=== PATIENT | male | born 1950 | race Caucasian/White ===

== ENCOUNTER → 2018-05-28 | Day surgery (SDC) | payer BC, MEDICARE ==
[2018-05-22 15:55] VITALS: BMI 33.5
[~2018-05-28] MED LIST: LACTATED RINGERS 1,000 ML IV SCH; LIDOCAINE 1% 20 ML VIAL (10MG/ML) FOR IV START INTRADERMA PRN; PROPOFOL 10 MG/ML 20 ML VIAL IV ONE
[2018-05-28 09:01] VITALS: RESP 16; TEMP 97.5
--- NOTE | 2018-05-28 09:10 | P.GSHP ---
History of Present Illness H&P Date: 05/28/18 Chief Complaint: History of colon polyps This a 68-year-old male who presents today for colonoscopy. Patient's previous history of colon polyps. Past Medical History Past Medical History: Eye Disorder, Hyperlipidemia, Prostate Disorder History of Any Multi-Drug Resistant Organisms: None Reported Additional Past Surgical History / Comment(s): RECONSTRUCTION RT CHEEK BONE. COLONOSCOPY. LT CATARACT REMOVAL Past Anesthesia/Blood Transfusion Reactions: No Reported Reaction Smoking Status: Never smoker - Past Family History Brother(s) Family Medical History: Cancer Medications and Allergies Home Medications Medication Instructions Recorded Confirmed Type Brimonidine Tartrate [Alphagan P 1 drops BOTH EYES BID 05/22/18 05/28/18 History 0.15% Ophth Soln] Finasteride [Proscar] 5 mg PO DAILY 05/22/18 05/28/18 History Simvastatin [Zocor] 20 mg PO DAILY 05/22/18 05/28/18 History Terazosin HCl 10 mg PO DAILY 05/22/18 05/28/18 History Timolol [Betimol 0.5% Ophth Soln] 1 drop BOTH EYES BID 05/22/18 05/28/18 History Allergies Allergy/AdvReac Type Severity Reaction Status Date / Time No Known Allergies Allergy Verified 05/28/18 08:48 Surgical - Exam Vital Signs Temp Pulse Resp BP Pulse Ox 97.5 F L 89 16 150/72 94 L 05/28/18 08:55 05/28/18 08:55 05/28/18 08:55 05/28/18 08:55 05/28/18 08:55 - General well developed, no distress - Eyes PERRL - ENT normal pinna - Neck no masses - Respiratory normal expansion - Cardiovascular Rhythm: regular - Abdomen Abdomen: soft, non tender Assessment and Plan Assessment: History of colon polyps. We'll perform colonoscopy.
--- NOTE | 2018-05-28 09:25 | P.OP ---
Date of Procedure: 05/28/18 Preoperative Diagnosis: History of colon polyps Postoperative Diagnosis: Normal colonoscopy Procedure(s) Performed: Colonoscopy Anesthesia: MAC Surgeon: Alex Owens Pathology: none sent Condition: stable Disposition: PACU Description of Procedure: PROCEDURE: The patient was placed on the endoscopy table in the lateral position. Digital rectal examination was performed which revealed no abnormalities. The prostate was symmetrical without nodules. Flexible colonoscope was then placed in the patient's anus and passed throughout the entire colon. The ileocecal valve was visualized. The cecum, ascending, transverse, descending and sigmoid colon were normal. The rectum was normal as well. There were no masses, polyps or diverticula noted in the entire colon. SUMMARY OF FINDINGS: Normal colonoscopy.
[2018-05-28 09:37] VITALS: PULSE 81
[2018-05-28 10:06] VITALS: BP 153/83
== END | disposition home or self-care (01) ==
LOC: ORWHC2ENDO 08:24
PROVIDERS: ATTEND Surgery
DX: Z12.11 Encounter for screening for malignant neoplasm of colon (principal); E78.5 Hyperlipidemia, unspecified; H40.9 Unspecified glaucoma; I10 Essential (primary) hypertension; Z86.010 Personal history of colon polyps; Z79.899 Other long term (current) drug therapy
CPT/HCPCS: J2704; G0105; 45378

== ENCOUNTER 2018-09-15 09:20 | Emergency (ER) | payer MEDICARE ==
[2018-09-15 09:26] VITALS: PULSE 83; RESP 18; TEMP 97.6
--- NOTE | 2018-09-15 10:31 | ED ---
Fall HPI - General Chief Complaint: Fall Stated Complaint: fall Time Seen by Provider: 09/15/18 09:41 Source: patient Mode of arrival: ambulatory - History of Present Illness Initial Comments: Patient is 68-year-old male presenting to the emergency department with chief complaint of pain in the left wrist, ribs and left hip. Patient states he was walking down to the basement to 3 days ago carrying a bowling ball when he tripped over the last step. Patient reports falling to the left side. Patient denies loss of consciousness at time of incident. he was able to get up on his own and get back upstairs. Patient reports taking ibuprofen for last 2 days with minimal improvement. Patient reports moderate pain with palpation in the anterior axillary line that is relieved with rest. Patient reports decreased wrist range of motion due to pain. Patient reports very mild pain in the left hip. Patient reports faint neck soreness. Patient denies any blurry vision, dizziness or headaches. Patient denies any chest pain or chest tightness. Patient denies previous syncopal episodes. - Related Data Home Medications Medication Instructions Recorded Confirmed Brimonidine Tartrate [Alphagan P 1 drops BOTH EYES BID 05/22/18 09/15/18 0.15% Ophth Soln] Finasteride [Proscar] 5 mg PO DAILY 05/22/18 09/15/18 Simvastatin [Zocor] 20 mg PO DAILY 05/22/18 09/15/18 Terazosin HCl 10 mg PO DAILY 05/22/18 09/15/18 Timolol [Betimol 0.5% Ophth Soln] 1 drop BOTH EYES BID 05/22/18 09/15/18 Ergocalciferol [Vitamin D2] 50,000 unit PO MO 09/15/18 09/15/18 Ibuprofen [Motrin Ib] 400 mg PO Q6H PRN 09/15/18 09/15/18 Allergies Allergy/AdvReac Type Severity Reaction Status Date / Time No Known Allergies Allergy Verified 09/15/18 09:51 Review of Systems ROS Statement: Those systems with pertinent positive or pertinent negative responses have been documented in the HPI. ROS Other: All systems not noted in ROS Statement are negative. Past Medical History Past Medical History: Eye Disorder, Hyperlipidemia, Prostate Disorder History of Any Multi-Drug Resistant Organisms: None Reported Additional Past Surgical History / Comment(s): RECONSTRUCTION RT CHEEK BONE. COLONOSCOPY. LT CATARACT REMOVAL Past Anesthesia/Blood Transfusion Reactions: No Reported Reaction Past Psychological History: No Psychological Hx Reported Smoking Status: Never smoker Past Alcohol Use History: Daily Past Drug Use History: None Reported - Past Family History Brother(s) Family Medical History: Cancer General Exam Limitations: no limitations General appearance: alert, in no apparent distress Head exam: Present: atraumatic, normocephalic Eye exam: Present: normal appearance, PERRL, EOMI. Absent: scleral icterus, conjunctival injection Pupils: Present: normal accommodation Neck exam: Present: normal inspection, tenderness (Very mild over SCM), full ROM (With and without resistance) Respiratory exam: Present: normal lung sounds bilaterally. Absent: wheezes, rales, rhonchi, stridor Cardiovascular Exam: Present: regular rate, normal rhythm, normal heart sounds GI/Abdominal exam: Present: soft, tenderness (Mid anterior axillary line), guarding (Mid anterior axillary line), normal bowel sounds. Absent: distended Left Hand Wrist exam: Present: tenderness (Anatomical snuffbox), swelling (Local swe lling on the posterior aspect of wrist). Absent: full ROM (Limited ROM with flexion and extension), crepitus, erythema Left Hip exam: Present: full ROM, tenderness (Very mild). Absent: swelling, abrasion, laceration Neurological exam: Present: alert, oriented X3 Psychiatric exam: Present: normal affect, normal mood Course Vital Signs 09/15/18 09/15/18 09/15/18 09:23 09:50 10:30 Temperature 97.6 F Pulse Rate 83 Respiratory 18 Rate Blood Pressure 181/89 182/98 164/80 O2 Sat by Pulse 98 94 L 95 Oximetry 09/15/18 09/15/18 10:40 10:50 Temperature Pulse Rate Respiratory Rate Blood Pressure 164/99 164/99 O2 Sat by Pulse Oximetry Procedures - Orthopedic Splinting/Casting Injury #1 Side: left Upper Extremity Injury Location: wrist, hand Upper Extremity Immobilizer: thumb spica Additional Comments: Patient was reevaluated and and neurovascularly intact. Medical Decision Making - Medical Decision Making Patient is a 68-year-old male presenting to the emergency department with the chief complaint of pain in the left wrist, ribs and hip. Chest x-ray ribs was obtained and is suggestive of No acute displaced rib fracture. X-ray left wrist is unremarkable. X-ray of left hip is unremarkable. Patient was given a thumb spica and advised to follow-up in 7-10 days with an fish hatchery specialist. Patient advised to take ibuprofen to control pain and ice the inflamed areas. Patient advised return to the Emergency Department if symptoms worsen or any other concerns. Case discussed with physician Disposition Clinical Impression: Fall Disposition: HOME SELF-CARE Condition: Stable Instructions (If sedation given, give patient instructions): Fall Prevention for Older Adults (ED) Additional Instructions: Please follow up with an fish hatchery specialist in 7-10 days. Take ibuprofen for pain control . Please return to the Emergency Department if symptoms worsen or any other concerns. Is patient prescribed a controlled substance at d/c from ED?: No Referrals: Manuela Chase DO [Primary Care Provider] - 1-2 days Time of Disposition: 11:56
--- NOTE | 2018-09-15 10:55 | XR ---
EXAMINATION TYPE: XR Hip Complete LT DATE OF EXAM: 09/15/2018 COMPARISON: NONE HISTORY: Pain TECHNIQUE: 2 views submitted FINDINGS: There is no evidence of erosive change or acute fracture. Narrowing of the hip joint with hypertrophi c change of the acetabulum. Vascular calcifications noted. IMPRESSION: 1. No evidence of acute fracture or dislocation. 2. 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
--- NOTE | 2018-09-15 10:57 | XR ---
EXAMINATION TYPE: XR wrist complete LT DATE OF EXAM: 09/15/2018 COMPARISON: NONE HISTORY: Pain TECHNIQUE: Four views submitted. FINDINGS: The osseous structures are intact. Arthropathy of the first carpal metacarpal joint. And there is no acute fracture or dislocation. Diffuse osteopenia. IMPRESSION: 1. No definite acute fracture or dislocation if symptoms persist, follow-up study in 7 to 10 days wo uld be suggested
--- NOTE | 2018-09-15 10:59 | XR ---
EXAMINATION TYPE: XR ribs LT w pa chest xray DATE OF EXAM: 09/15/2018 COMPARISON: NONE HISTORY: Pain TECHNIQUE: PA view the chest and 4 views of the left ribs are submitted. FINDINGS: Arthropathy shoulders. No pneumothorax. Lung escoto are clear. Heart size normal. Rib cage intact. IMPRESSION: No acute displaced rib fracture.
[2018-09-15 11:02] VITALS: BP 164/99
== END 2018-09-15 12:20 | disposition home or self-care (01) ==
LOC: EC 09:20
DX: M25.532 Pain in left wrist (principal); R07.81 Pleurodynia; M25.552 Pain in left hip; H57.9 Unspecified disorder of eye and adnexa; E78.5 Hyperlipidemia, unspecified; N42.9 Disorder of prostate, unspecified; Z79.899 Other long term (current) drug therapy; W10.9XXA Fall (on) (from) unspecified stairs and steps, initial encounter; Y93.01 Activity, walking, marching and hiking
CPT/HCPCS: 29125; 73502; 99283

== ENCOUNTER → 2019-03-20 | Outpatient (CLI) | payer MEDICARE ==
--- NOTE | 2019-03-20 16:15 | MR ---
EXAMINATION TYPE: MR lumbar spine wo con DATE OF EXAM: 03/20/2019 COMPARISON: None HISTORY: Lumbago with sciatica, unspecified side TECHNIQUE: Multiplanar, multisequence images of the lumbar spine were acquired. L1-L2: Posterior broad-based disc bulge causes mild anterior mass effect on the thecal sac. No signif icant central stenosis or foraminal encroachment. There is facet arthropathy change causing posterior lateral mass effect on the thecal sac. L2-L3: Broad-based posterior disc bulge causes anterior mass effect on the thecal sac somewhat eccent guanako towards the left there is a disc herniation present encroaching somewhat towards the left neural foramen. There is moderate central canal stenosis. Facet arthropathy causes posterior lateral mass ef fect on the thecal sac. L3-L4: Left posterior paracentral disc herniation causes anterolateral mass effect on the thecal sac. There is moderate central canal stenosis. Facet arthropathy with hypertrophic changes and ligamentum flavum causes posterior lateral mass effect on the thecal sac. Circumferential extension of disc mat erial encroaches somewhat on the foramina. L4-L5: Hypertrophic changes of the facets results in some posterior lateral mass effect on the thecal sac, trefoil appearance of the thecal sac is noted. No significant central stenosis. The facet arthr opathy encroaches somewhat on the neural foramina. There is a posterior broad-based disc bulge causin g minimal anterior mass effect on the thecal sac. L5-S1: Increased signal at the posterior aspect of the disc likely represents an annular tear, there is a small posterior disc protrusion causing minimal anterior mass effect on the thecal sac. Facet ar thropathy with hypertrophy of the ligamentum flavum causes some posterior lateral mass effect on the thecal sac. No significant central stenosis. Circumferential extension of endplate disc complex resul ts in some foraminal encroachment. Lumbar segments are intact. No paraspinal masses are identified. Conus medullaris has a normal appe arance. Lumbar vertebral bodies show preserved height and alignment. There is multilevel spondylosis with endplate discogenic marrow signal change. Loss of disc height signal present at the intervertebr al disc levels L4-5, L2-3, L1-2. IMPRESSION: Disc herniations with spinal stenosis greatest at L3-4, L2-3. Multilevel facet arthropathy and forami nal encroachment.
== END | disposition home or self-care (01) ==
LOC: RADMRIMAIN 05:52
PROVIDERS: ATTEND Family Medicine
DX: M48.061 Spinal stenosis, lumbar region without neurogenic claudication (principal); M48.062 Spinal stenosis, lumbar region with neurogenic claudication; M51.26 Other intervertebral disc displacement, lumbar region; M46.96 Unspecified inflammatory spondylopathy, lumbar region; N40.0 Benign prostatic hyperplasia without lower urinary tract symptoms
CPT/HCPCS: 72148

== ENCOUNTER → 2020-11-24 | Outpatient (CLI) | payer MEDICARE ==
--- NOTE | 2020-11-24 17:42 | MR ---
EXAMINATION TYPE: MR lumbar spine wo con DATE OF EXAM: 11/24/2020 COMPARISON: Lumbar spine MRI 03/20/2019 HISTORY: LBP, RLE radiculopathy. TECHNIQUE: Multiplanar, multisequence images of the lumbar spine were acquired. L1-L2: Posterior extension endplate disc complex causes mild anterior mass effect on the thecal sac. No significant spinal stenosis or foraminal encroachment. L2-L3: Mild spinal stenosis is present, there is facet arthropathy with hypertrophy ligamentum flavum causing posterior lateral mass effect on the thecal sac. Circumferential extension endplate disc com plex encroaches upon the neural foramina. L3-L4: Facet arthropathy with hypertrophy ligamentum flavum results in moderate to severe spinal sten osis, circumferential posterior disc bulge causes anterior mass effect on the thecal sac. Circumferen tial extension endplate disc complex results in bilateral foraminal encroachment. L4-L5: Facet arthropathy with hypertrophy ligamentum flavum results in a trefoil appearance of the th ecal sac. There is some encroachment on the left-sided neural foramen. L5-S1: Facet arthropathy changes are present causing posterior lateral mass effect on the thecal sac, there is some encroachment on the lateral recess greater on the left. Minimal disc bulge effaces the anterior thecal sac similar to prior exam. Circumferential extension endplate disc complexes similar encroaches somewhat on the inferior aspect of the neural foramina. Lumbar segments are intact. No paraspinal masses are identified. Conus medullaris has a normal appe arance. There is no significant interval change. There is multilevel spondylosis, endplate discogenic marrow signal change, loss of disc height signal at intervertebral levels especially L3-4, L4-5, L2- 3 and L1-2. IMPRESSION: Disc disease, facet arthropathy, foraminal encroachment are similar to prior exam.
== END | disposition home or self-care (01) ==
LOC: RADMRIMAIN 08:30
PROVIDERS: ATTEND Orthopaedic Surgery Orthopaedic Surgery of the Spine
DX: M51.17 Intervertebral disc disorders with radiculopathy, lumbosacral region (principal); M47.27 Other spondylosis with radiculopathy, lumbosacral region
CPT/HCPCS: 72148

== ENCOUNTER → 2020-11-30 | Outpatient (CLI) | payer MEDICARE ==
[2020-11-30 09:27] VITALS: BP 152/89; PULSE 87; RESP 16; TEMP 98.2
--- NOTE | 2020-11-30 09:48 | P.PAINCN ---
History of Present Illness - Reason for Consult Consult date: 11/30/20 - History of Present Illness This is a 70 use old male with a chronic history of severe low back pain with radiation to the right buttock and right hip area, pain started more than 2 years ago, denies any initiating event and the intensity of the pain increased over time, she had MRI of the lumbar spine done gently and it showed multilevel lumbar degenerative disc disease and multilevel lumbar spondylosis with lumbar facet arthropathy, and left side foraminal stenosis, denies any motor or sensory deficits but he reported that intensity of the pain interferes with the quality of life, interfere with activities of daily living, she had a urinalysis steroid injection done at different pain clinic and he had no benefit from Past Medical History Past Medical History: Eye Disorder, Hyperlipidemia, Prostate Disorder History of Any Multi-Drug Resistant Organisms: None Reported Past Surgical History: Hernia Repair Additional Past Surgical History / Comment(s): RECONSTRUCTION RT CHEEK BONE. COLONOSCOPY. LT CATARACT REMOVAL. fractured ligament Past Anesthesia/Blood Transfusion Reactions: No Reported Reaction Smoking Status: Never smoker - Past Family History Brother(s) Family Medical History: Cancer Medications and Allergies Home Medications Medication Instructions Recorded Confirmed Type Brimonidine Tartrate [Alphagan P 1 drops BOTH EYES BID 05/22/18 11/30/20 History 0.15% Ophth Soln] Finasteride [Proscar] 5 mg PO DAILY 05/22/18 11/30/20 History Terazosin HCl 10 mg PO DAILY 05/22/18 11/30/20 History Timolol [Betimol 0.5% Ophth Soln] 1 drop BOTH EYES BID 05/22/18 11/30/20 History Ergocalciferol [Vitamin D2] 50,000 unit PO WEEKLY 09/15/18 11/30/20 History Tadalafil [Cialis] 5 mg PO DAILY 11/30/20 11/30/20 History Allergies Allergy/AdvReac Type Severity Reaction Status Date / Time No Known Allergies Allergy Verified 09/15/18 09:51 Physical Exam Vitals: Vital Signs Temp Pulse Resp BP Pulse Ox 11/30/20 09:14 98.2 F 87 16 152/89 96 Intake and Output 11/29/20 11/30/20 11/30/20 22:59 06:59 14:59 Other: Weight 104.647 kg Physical Examinations : -Constitutiona : Cooperative , not in acute distress . -HEENT : nech : supple , no Lymphadenopathy , normal thyroid size . : eyes : no ptosis , no icterus, no photophobia . - neurologic : Cranial nerve II to XII intact , no focal neurological deffecit . -psychatric : alert , oriented X 3 , appropriate affect , intact judgment and insight . -Lymphatic : no Lymphadenopathy . - musculoskeltal : Lumber spine moter stegnth lower extremities ,thigh and legs 5/5 Right side , 5/5 Left side deep tendon reflexes : normal Knee Jerk , normal ankle Jerk lumber facet Loading Test =positive Right , positive Left Range of motion of the lumbar spine Flexion 60 degrees, extension 30 degrees strait leg raising test = positive at negative bilaterally Fabere test= positive Right , and positive LT . mild tenderness over the Sacroiliac joint on the Right , and Left sides Flexion extension and lateral rotation of the right hip associated with severe pain. Results Comments: Of the lumbar spine= multilevel lumbar degenerative disc disease multilevel lumbar spondylosis with lumbar facet arthropathy and left-sided foraminal stenosis Assessment and Plan Plan: Assessment and plan=1-right hip arthralgia. 2-lumbar spondylosis with lumbar facet arthropathy without myelopathy. 3-lumbar degenerative disc disease. Patient had multifactorial causes of his low back pain, clinically most of the pain is coming from the right hip etiology, patient will be referred for evaluation, by orthopedic surgeon regarding his right hip pain. Time with Patient: Greater than 30 PQRS Measure Charge Sheet Measure #130: Documentation of Current Meds in Medical Chart: Patient's medications documented in chart Measure #226: Tobacco Use: Screen & Cessation Intervention: Pt not a tobacco user Measure #111: Pneumonia Vaccination: Pneumococcal vaccine administered or previously received Measure #47: Advance Care Plan: Advance care planning discussed & documented, pt chose/unable to give Measure #412: Opioid Treatment Agreement: No documentation of signed opioid treatment agreement Measure #408: Opioid Therapy Follow-up Evaluation: Patient had NO f/u eval minimum every 3 months during opioid therapy Measure #317: Preventitive Care & Scrn High Bld Press & F/U: Pre-hypertensive or hypertensive BP documented, pt will f/u with PCP Measure #128: Body Mass Index (BMI) Screening & Follow-up: BMI documented ABOVE normal parameters - f/u documented Measure #131: Pain Assessment & Follow-up: Pain positive & plan documented, Follow-up scheduled Measure #431: Unhealthy Alcohol Use Preventative Care & Scrn: Patient not identified as an unhealthy alcohol user PQRS Narrative: Smoking Status Never smoker Blood Pressure 152/89 Pain Intensity [Right Hip] 8 Scale Used Numeric (1 - 10) Hx Alcohol Use (MH) Yes: 6 beers a night Home Medications: Ambulatory Orders Brimonidine Tartrate [Alphagan P 0.15% Ophth Soln] 1 drops BOTH EYES BID 05/22/18 Finasteride [Proscar] 5 mg PO DAILY 05/22/18 Terazosin HCl 10 mg PO DAILY 05/22/18 Timolol [Betimol 0.5% Ophth Soln] 1 drop BOTH EYES BID 05/22/18 Ergocalciferol [Vitamin D2] 50,000 unit PO WEEKLY 09/15/18 Tadalafil [Cialis] 5 mg PO DAILY 11/30/20
== END ==
LOC: PNWHC3 08:47
PROVIDERS: ATTEND Specialist
DX: M47.816 Spondylosis without myelopathy or radiculopathy, lumbar region (principal); M51.36 Other intervertebral disc degeneration, lumbar region; M25.551 Pain in right hip; E78.5 Hyperlipidemia, unspecified
CPT/HCPCS: 99212

== ENCOUNTER → 2021-01-20 | Outpatient (CLI) | payer MEDICARE ==
[~2021-01-20] MED LIST changes: -LACTATED RINGERS 1,000 ML IV SCH; -LIDOCAINE 1% 20 ML VIAL (10MG/ML) FOR IV START INTRADERMA PRN; -PROPOFOL 10 MG/ML 20 ML VIAL IV ONE; +REGADENOSON 0.4 MG/5 ML SYRINGE IV PRN
--- NOTE | 2021-01-20 12:02 | NM ---
EXAMINATION TYPE: NM stress lexiscan cardiolite DATE OF EXAM: 01/20/2021 COMPARISON: None HISTORY: Abnormal EKG TECHNIQUE: After the intravenous administration of 9.7 mCi Tc 99m Sestamibi - Cardiolite resting SPE CT images acquired 50 minutes post injection. The patient received 0.4mg Lexiscan, 25.6 mCi Tc 99m Sestamibi - Stress images obtained [address] injection FINDINGS: Review of stress and rest SPECT images demonstrates decreased uptake along the inferolateral left penny tricle towards the cardiac apex on stress as compared to rest images. Gated analysis shows normal wal l motion with an estimated left ventricular ejection fraction of 46 %. IMPRESSION: Pharmacologically induced left ventricular myocardial ischemia A Yellow level critical message alert has been initiated for Manuela Chase DO via the [employer] Critical Results System on 01/20/2021 11:59 AM. This message alert has been sent to Manuela Chase DO via the preferences provided by the clinician for the receipt of Radiology Critical Findings. Message ID [id number].
--- NOTE | 2021-01-20 13:12 | P.STRESS ---
- Stress Test Note Stress Test Results/Findings: Exam Performed: NM stress lexiscan cardiolite Exam Date: 01/20/21 Reason for Exam: Abnormal EKG Height: 5 ft 11 in Weight: 104.326 kg Protocol: Lexiscan Stage: na Duration of Exercise: na Resting Heart Rate: 63 Resting Blood Pressure: 175/81 Maximum Achieved Heart Rate: 97 Maximum Achieved Blood Pressure: 189/88 85% PMHR: 128 100% PMHR: 150 METS: na Technologist Comment: Stress Test Results/Findings: Baseline [place] EKG shows sinus rhythm with normal ST segments Patient received Lexiscan infusion per protocol Elevated blood pressure readings No ECG abnormalities Occasional PVCs Nuclear portion of the test will be reported separately
== END | disposition home or self-care (01) ==
LOC: RADNMMAIN 07:58
PROVIDERS: ATTEND Family Medicine
DX: I25.9 Chronic ischemic heart disease, unspecified (principal)
CPT/HCPCS: 93017; 78452; A9500; J2785

== ENCOUNTER 2021-01-30 05:57 | Day surgery (SDC) | payer MEDICARE ==
[2021-01-27 09:08] VITALS: BMI 31.6
[~2021-01-30 05:57] MED LIST changes: +ALPRAZolam 0.25 MG TAB PO PRN; +ALPRAZolam 0.5 MG TAB PO PRN; +ASPIRIN 325 MG TAB PO STA; +ATORVASTATIN 80 MG TAB PO STA; +HEPARIN SODIUM,PORCINE 10,000 UNIT in SODIUM CHLORIDE 0.9% 1,000 ML IRRIGATION PRN; +HEPARIN SODIUM,PORCINE 2,500 UNIT in SODIUM CHLORIDE 0.9% 250 ML IRRIGATION PRN; +NITROGLYCERIN SL TABS 0.4 MG TAB SUBLINGUAL PRN; -REGADENOSON 0.4 MG/5 ML SYRINGE IV PRN; +SODIUM CHLORIDE 0.9% 1,000 ML in EMPTY BAG 1 BAG IV ONE
[2021-01-30 06:28] VITALS: RESP 16; TEMP 97.8
[2021-01-30 06:30] LABS: Basophils % (A) 0 %; Eosinophils # (A) 0.2 k/uL (0-0.7); Eosinophils % (A) 3 %; HCT 40.6 % (39.0-53.0); Lymphocytes # (A) 1.9 k/uL (1.0-4.8); Lymphocytes % (A) 28 %; MCH 32.2 pg (25.0-35.0); MCHC 34.4 g/dL (31.0-37.0); MCV 93.6 fL (80.0-100.0); Mean Platelet Volume 7.4; Monocytes # (A) 0.5 k/uL (0-1.0); Monocytes % (A) 7 %; Neutrophils % (A) 60 %; Platelet Count 258 k/uL (150-450); RBC 4.33 m/uL (4.30-5.90); RDW 12.2 % (11.5-15.5); WBC 6.6 k/uL (3.8-10.6)
[2021-01-30 06:44] LABS: African American GFR (CKD) >90 (>60 ml/min/1.73 sqM); Anion Gap 8 mmol/L; Blood Urea Nitrogen 10 mg/dL (9-20); Calcium 9.6 mg/dL (8.4-10.2); Carbon Dioxide 25 mmol/L (22-30); Chloride 108 mmol/L (98-107); Glucose 118 mg/dL (74-99); Non-African American GFR(CKD) >90 (>60 ml/min/1.73 sqM); Potassium 4.2 mmol/L (3.5-5.1); Sodium 141 mmol/L (137-145)
[2021-01-30] MEDS ORDERED: LIDOCAINE 1% INJ 10MG/ML (20 ML MDV) ONE (07:11)
[2021-01-30] MEDS ORDERED: VERAPAMIL 2.5 MG/ML 2 ML AMP ONE (07:12)
[2021-01-30] MEDS ORDERED: fentaNYL (PF) 50 MCG/ML 2 ML AMP ONE (07:25)
[2021-01-30] MEDS ORDERED: MIDAZOLAM 2 MG/2 ML VIAL IV ONE (07:47)
[2021-01-30] MEDS ORDERED: LIDOCAINE 1% INJ 10MG/ML (10 ML MDV) SQ ONE ×2 (07:47→07:48)
[2021-01-30] MEDS ORDERED: fentaNYL (PF) 50 MCG/ML 2 ML AMP IV ONE (07:47)
[2021-01-30] MEDS ORDERED: VERAPAMIL SYRINGE (5 MG/10 ML) INTRAARTER ONE ×2 (07:48→07:49)
[2021-01-30] MEDS ORDERED: HEPARIN SODIUM 1,000 UN/ML (10ML VL) ONE (07:50)
[2021-01-30] MEDS: HEPARIN SODIUM 1,000 UN/ML (10ML VL) IV ONE ×2 (07:52→08:21)
[2021-01-30] MEDS ORDERED: CLOPIDOGREL 75 MG TAB ONE (08:12)
[2021-01-30] MEDS ORDERED: CLOPIDOGREL 75 MG TAB PO ONE ×2 (08:17)
[2021-01-30] MEDS ORDERED: NITROGLYCERIN 1000MCG/10ML SYRINGE INTRACORON ONE ×2 (08:20→08:37)
[2021-01-30] MEDS ORDERED: IOPAMIDOL-370 125ML BTL INJ ONE (08:23)
--- NOTE | 2021-01-30 08:25 | P.CARDCATH ---
Date of Procedure: 01/30/21 Preoperative Diagnosis: HISTORY: This is a 70-year-old gentleman with history of hypertension, diabetes and hypercholesterolemia who was evaluated by stress test as a preop procedure for hip replacement. It was described as abnormal with ischemia in the inferior wall. Patient is advised to have a cardiac catheterization for definitive diagnosis. Patient doesn't have symptoms of angina or CHF CONSENT:I have discussed the risks, benefits and alternative therapies for the above-mentioned procedure and for both sedation/analgesia as well as necessary blood product administration, if indicated, as they pertain to this patient. The patient has indicated understanding and acceptance of the risks and p rocedures discussed. PROCEDURE: Patient was brought to the lab in a fasting state. Patient was given some IV sedation. The right wrist is infiltrated with lidocaine and right radial artery was entered using Seldinger technique. A 6-Occitan catheter was left in place and selective coronary arteriography was performed. Patient tolerated the procedure well. Patient went on to have stent placement of the mid LAD. No immediate complications were noted . Conscious Sedation: Versed 1mg Fentanyl 25 g Duration 18minutes HEMODYNAMICS: Aortic pressure is about 160/90. There is a gradient of about 5 mm across the aortic valve. The left ventricle end-diastolic pressure is about 8-10 SELECTIVE CORONARY ARTERIOGRAPHY: LEFT MAIN: Relatively short and free of any Sigmund focal lesion THE LEFT ANTERIOR DESCENDING CORONARY ARTERY: Moderate caliber vessel with about 80-90% stenosis in the midportion THE LEFT CIRCUMFLEX AND IS CORONARY ARTERY: Fair caliber vessel giving small intermediate branch and mid has is mild diffuse disease. No critical lesions THE RIGHT CORONARY ARTERY: Dominant vessel with mild diffuse disease. Use ice to PDA and PLV LEFT VENTRICULOGRAPHY: Not performed FINAL IMPRESSION: Critical lesion involving the mid LAD. Mild disease involving the intermediate and also right coronary artery PLAN: Stent placement of the mid LAD being done by Dr. Willett PROGNOSIS: Fair
[2021-01-30] MEDS ORDERED: IOPAMIDOL-370 100ML BTL INJ ONE (08:42)
--- NOTE | 2021-01-30 09:15 | P.PRCINT ---
Percutaneous Coronary Int. - Percutaneous Coronary Intervention Percutaneous Coronary Intervention: PROCEDURES PERFORMED: Left coronary angiography. PCI mid LAD with a 2.5 x 12mm Xience JOSELITO INDICATION: Abnormal stress test, preoperative clearance HISTORY: Patient is a pleasant 70-year-old male with history of hypertension, diabetes mellitus, hyperlipidemia and osteoarthritis. He had diagnostic heart catheterization performed by Dr Vallejo secondary to abnormal stress test with apical ischemia. Heart catheterization showed obstructive 90% LAD stenosis as well as diffuse mild to moderate disease. Therefore I was asked to perform PCI. CONSENT:I have discussed the risks, benefits and alternative therapies for the above-mentioned procedure and for both sedation/analgesia as well as necessary blood product administration, if indicated, as they pertain to this patient. The patient has indicated understanding and acceptance of the risks and procedures discussed. PROCEDURE: After the risks, benefits and alternatives of the above mentioned procedure explained in detail with the patient, informed consent was obtained. Patient has been taken to the catheterization lab and prepped and draped in usual fashion. A 6-Occitan sheath has previously been placed in the right radial artery. A 6-Occitan CLS 3.5 guide catheter was used to engage the left main. Heparin was given for ACT greater than 250. A 0.014 BMW wire was advanced into the distal LAD. Predilation was performed with a 2.25 x 12 mm balloon. Next a 2.5 x 12 mm Xience JOSELITO was placed. For intervention there was 90% stenosis with THU 3 flow and post intervention there was less than 10% stenosis with THU 3 flow and no dissection. The right radial sheath was removed and a TR band was placed with hemostasis achieved. The patient tolerated the procedure well. Patient was transported back to the post catheterization holding area in stable condition. Conscious Sedation: Patient was monitored under the direct supervision of vision of myself for conscious sedation using Versed and fentanyl for a total duration of 32 minutes SELECTIVE CORONARY ARTERIOGRAPHY: LEFT MAIN: The left main is a large caliber vessel which trifurcates into the LAD. ramus and circumflex. There is no significant stenosis. LEFT ANTERIOR DESCENDING CORONARY ARTERY: LAD is a large caliber vessel which wraps around to the apex. There is diffuse 20-40% proximal to mid LAD stenosis with a more focal mid LAD 90% stenosis. RAMUS: Ramus is a moderate caliber vessel with diffuse 30-40% stenosis. LEFT CIRCUMFLEX CORONARY ARTERY: Left circumflex is a moderate caliber vessel diffuse 30-40% stenosis. RIGHT CORONARY ARTERY: Not imaged FINAL IMPRESSION: 1. CAD as described above status post PCI mid LAD with a 2.5 x 12mm Xience JOSELITO PLAN: 1. Aggressive risk factor modification per most recent ACC/AHA guidelines. 2. Continue dual antiplatelets for 12 months
[2021-01-30] MEDS ORDERED: ATROPINE SULFATE 0.1 MG/ML 10ML SYRINGE IV PRN (09:16)
[2021-01-30] MEDS ORDERED: NITROGLYCERIN SL TABS 0.4 MG TAB SUBLINGUAL PRN (09:16)
[2021-01-30] MEDS ORDERED: MAG HYDROX/AL HYDROX/SIMETH 30 ML CUP PO PRN (09:16)
[2021-01-30] MEDS ORDERED: RX INFO: IV CONTRAST WAS GIVEN 1 EACH MISC MISCELLANE PRN (09:16)
[2021-01-30] MEDS ORDERED: ZOLPIDEM 5 MG TAB PO PRN (09:16)
[2021-01-30] MEDS ORDERED: SODIUM CHLORIDE 0.9% 1,000 ML IV SCH (09:30)
[2021-01-30] MEDS ORDERED: METOPROLOL SUCCINATE (ER) 25 MG TAB.ER.24H PO STA (12:29)
[2021-01-30 16:52] VITALS: BP 153/70; PULSE 74
[2021-01-31] MEDS ORDERED: ASPIRIN 81 MG PO SCH (09:00)
[2021-01-31] MEDS ORDERED: CLOPIDOGREL 75 MG TAB PO SCH (09:00)
== END 2021-01-30 13:44 | disposition home or self-care (01) ==
LOC: CATHCVL 05:57
PROVIDERS: ATTEND Internal Medicine Cardiovascular Disease
DX: I25.10 Atherosclerotic heart disease of native coronary artery without angina pectoris (principal); I10 Essential (primary) hypertension
CPT/HCPCS: 93458; 80048; 85025; 87635; C9600; C1769; C1887 ×2; C1894; C1725; C1874; J2250; J3010; J1644; J2001; Q9967 ×2

== ENCOUNTER → 2021-07-28 | Outpatient (CLI) | payer MEDICARE ==
[2021-07-28 14:47] LABS: Basophils # (A) 0.04 X 10*3/uL (0.00-0.10); Basophils % (A) 0.7 %; Eosinophils # (A) 0.21 X 10*3/uL (0.04-0.35); Eosinophils % (A) 3.5 %; HGB 12.3 g/dL (13.0-17.0); Immature Grans, Automated 0.5 %; Lymphocytes % (A) 20.1 %; MCH 30.4 pg (27.0-32.0); MCHC 32.4 g/dL (32.0-37.0); MCV 94.1 fL (80.0-97.0); Mean Platelet Volume 10.1 fL (9.5-12.2); Monocytes # (A) 0.56 X 10*3/uL (0.20-1.00); Monocytes % (A) 9.4 %; NRBC Per 100 WBC 0 /100 WBCS (0.0-0.0); Neutrophils # (A) 3.93 X 10*3/uL (1.80-7.70); Neutrophils % (A) 65.8 %; Platelet Count 243 X 10*3/uL (140-440); RBC 4.04 X 10*6/uL (4.40-5.60); RDW 11.9 % (11.5-14.5); WBC 5.97 X 10*3/uL (4.50-10.00)
[2021-07-28 14:54] LABS: Anion Gap 13.3 mmol/L (10.00-18.00); Carbon Dioxide 22.7 mmol/L (20.0-27.5); Potassium 4.5 mmol/L (3.5-5.5)
[2021-07-28 15:06] LABS: INR 0.95 (0.90-1.11); Prothrombin Time 10.8 sec (9.9-11.9)
== END | disposition home or self-care (01) ==
LOC: LABPAT 09:05
PROVIDERS: ATTEND Orthopaedic Surgery
DX: Z01.812 Encounter for preprocedural laboratory examination (principal); Z22.322 Carrier or suspected carrier of Methicillin resistant Staphylococcus aureus; M16.11 Unilateral primary osteoarthritis, right hip
CPT/HCPCS: 80051; 85025; 85610; 87070

== ENCOUNTER 2021-08-07 11:03 | Day surgery (SDC) | payer MEDICARE ==
--- NOTE | 2021-08-06 19:25 | HP ---
HISTORY AND PHYSICAL REASON FOR ADMISSION: Surgery scheduled for 08/07/2021 HISTORY OF PRESENT ILLNESS: Curtis Wick is a 71-year-old gentleman seen with symptomatic right hip osteoarthritis. We discussed options for treatment. He elected to proceed with direct anterior right total hip arthroplasty. Consent was obtained. Medical clearance was provided by Dr. Manuela Chase, cardiac clearance from Dr. Lambert. PAST MEDICAL HISTORY: Hypertension, hyperlipidemia, cardiovascular disease. PAST SURGICAL HISTORY: Noncontributory. MEDICATIONS: Terazosin, atorvastatin, Plavix, lisinopril, metoprolol. ALLERGIES: None reported. SOCIAL HISTORY: He denies current tobacco use. PHYSICAL EXAMINATION: Evaluation of the right hip, he has diffuse tenderness about the hip girdle. Very limited range of motion with severe pain. Positive hip impingement sign. Straight-leg raise is negative. His distal neurovascular exam is intact. RADIOGRAPHS: Right hip radiographs reveal severe osteoarthritic changes. IMPRESSION: 1. Right hip osteoarthritis. 2. Cardiovascular disease. 3. Hypertension. 4. Hyperlipidemia. PLAN: Direct anterior right total hip arthroplasty. Surgery 08/07/2021. MMODL / IJN: [id number] /
[~2021-08-07 11:03] MED LIST changes: +ACETAMINOPHEN TAB 500 MG TAB PO PRN; -ALPRAZolam 0.25 MG TAB PO PRN; -ALPRAZolam 0.5 MG TAB PO PRN; -ASPIRIN 325 MG TAB PO STA; -ATORVASTATIN 80 MG TAB PO STA; +DEXAMETHASONE SOD PHOSPHATE 4 MG/ML 1 ML VIAL IV ONE; -HEPARIN SODIUM,PORCINE 10,000 UNIT in SODIUM CHLORIDE 0.9% 1,000 ML IRRIGATION PRN; -HEPARIN SODIUM,PORCINE 2,500 UNIT in SODIUM CHLORIDE 0.9% 250 ML IRRIGATION PRN; +LIDOCAINE 1% (10MG/ML) FOR IV START INTRADERMA PRN; +MELOXICAM 7.5 MG TAB PO PRN; +MIDAZOLAM 2 MG/2 ML VIAL IV PRN; -NITROGLYCERIN SL TABS 0.4 MG TAB SUBLINGUAL PRN; +ONDANSETRON 4 MG/2 ML VIAL IVP ONE; -SODIUM CHLORIDE 0.9% 1,000 ML in EMPTY BAG 1 BAG IV ONE; +TRANEXAMIC ACID IN NACL,ISO-OS 1,000 MG in SALINE 1 100ML.BAG IVPB PRN
[2021-08-07] MEDS ORDERED: LACTATED RINGERS 1,000 ML IV ONE ×2 (11:41→16:24)
[2021-08-07] MEDS ORDERED: PROPOFOL 10 MG/ML 20 ML VIAL IV ONE (12:18)
[2021-08-07] MEDS ORDERED: PHENYLEPHRINE-0.9% NACL SYG 1,000 MCG/10 ML SYRINGE ONE (12:18)
[2021-08-07] MEDS ORDERED: MIDAZOLAM 2 MG/2 ML VIAL ONE (12:18)
[2021-08-07] MEDS ORDERED: fentaNYL (PF) 50 MCG/ML 2 ML AMP ONE (12:18)
[2021-08-07] MEDS ORDERED: LIDOCAINE 1% INJ 10MG/ML (20 ML MDV) ONE (12:18)
[2021-08-07] MEDS ORDERED: NEOSTIGMINE 1 MG/ML 10 ML VIAL ONE (12:18)
[2021-08-07] MEDS ORDERED: GLYCOPYRROLATE 0.2 MG/ML 2 ML VIAL ONE (12:18)
[2021-08-07] MEDS ORDERED: SUCCINYLCHOLINE CHLORIDE 100 MG/5 ML SYR IV ONE (12:18)
[2021-08-07] MEDS ORDERED: ROCURONIUM 10 MG/ML (5 ML VIAL) IV ONE (12:18)
[2021-08-07] MEDS ORDERED: TRANEXAMIC ACID IN NACL,ISO-OS 1,000 MG/100 ML BAG ONE (12:18)
[2021-08-07] MEDS ORDERED: BUPIVACAINE (PF) 0.5% 30 ML VIAL SQ ONE (12:23)
[2021-08-07] MEDS ORDERED: ceFAZolin 1,000 MG in SODIUM CHLORIDE 0.9% 1,000 ML IRRIGATION ONE (12:50)
--- NOTE | 2021-08-07 14:07 | P.OP ---
Date of Procedure: 08/07/21 Preoperative Diagnosis: Right hip osteoarthritis Postoperative Diagnosis: Right hip osteoarthritis Procedure(s) Performed: Direct anterior right total hip arthroplasty Implants: 1. Depuy [place]ail size 15 high offset with collar press-fit femoral stem 2. Depuy [place] 60 mm multi hole press-fit acetabular shell 3. Depuy [place] +4 neutral polyethylene acetabular liner 36 mm ID 60 mm OD 4. Biolox Delta ceramic femoral head +1.5 36 mm Anesthesia: VICTORIAA, local Surgeon: Norman Light Outside Barrel Lathe Operator #1: Stevan Sykes Estimated Blood Loss (ml): 80 Pathology: other (Femoral head) Condition: stable Disposition: PACU Indications for Procedure: 71-year-old patient seen with symptomatic right hip osteoarthritis. After treatment options were discussed, he elected to proceed with direct anterior right total hip arthroplasty Operative Findings: See description of procedure Description of Procedure: The patient was taken to the operative suite. Patient underwent a general anesthetic by the department of anesthesia. Patient was then transferred to the [place] table. Patient was given preoperative IV antibiotics and TXA. Both lower extremities were placed in standard leg spars. The hip was then prepped and draped in the normal sterile orthopedic fashion. A standard anterior incision was made beginning 3 cm lateral and 1 cm distal to the ASIS extending 10 cm. D issection was then carried down through the subcutaneous soft tissues down to the fascia overlying the tensor fascia miranda. An incision was now made through the fascia. Careful dissection was taken down exposing the tensor fascia miranda muscle. A Cobra retractor was now placed along the medial femoral neck and a second one along the lateral femoral neck. The venous circumflex vessels were now identified, cauterized and clipped. We identified the anterior hip capsule. An incision was made through the hip capsule along the lateral border. I performed a partial anterior capsulectomy. Retractors were now placed around the femoral neck itself. A femoral neck cut was now made with a sagittal saw. It was completed with an osteotome at the lateral neck area. The femoral head was now removed without difficulty. The extremity was now rotated to 60 of external rotation. It was locked in position. Residual labrum was now debrided out. Serial reaming was performed of the acetabulum while Shemar PEREZ assisted holding an anterior retractor for exposure. Once we reached the appropriate size and a trial was position and fit nicely. The appropriate size was now chosen opened and made available. It was introduced into the acetabulum without difficulty. The C-arm/fluoroscopy was now brought into the operative field. We made sure we had a true AP pelvic view. We now under direct C- arm/fluoroscopy introduced into the acetabular component with appropriate version and inclination. I held the cup in appropriate position well Shemar PEREZ used a mallet to seat the acetabular component. I noted the component now to be well seated and stable. Acetabular cup introduce her was removed. The C-arm was pulled back. An appropriate liner was introduced and clicked into position. It was felt to be stable. At this point retractors were removed. The extremity was now placed into 140 external rotation with no traction. The leg was now dropped to the ground and adducted. Appropriate retractors were now positioned along the proximal femur. We also placed our femoral look into position. Additional capsular releasing was performed to gain access to the proximal femur. We now used a box osteotome. A canal finder was now utilized. Serial broaching was now performed with the assistance of Shemar PEREZ tapping the broaches down with a mallet while held the broach in appropriate rotation and position. This was done until we reached the appropriate size with good overall rotational stability. Appropriate calcar planing was performed. A trial head/neck was placed into position. The hip was now reduced. The C- arm/fluoroscopy was brought back into the operative field. I obtained AP pelvis demonstrating adequate leg length alignment. The trial components appeared appropriately positioned and sized. The C-arm/fluoroscopy was pulled back. Retractors were repositioned and the hip was dislocated. The leg was again taken down to the ground and adducted. Appropriate retractors were repositioned as well as the femoral hook. All trial components were removed. The femoral implant was opened along with the femoral head. The femoral implant was intro duced on the appropriate handle into our pre-broached area. I held the component position well Shemar PEREZ used a mallet to seat the femoral component. The femoral component was now noted to be well seated and stable.. The femoral head was introduced with good positioning and fixation noted. Retractors were now removed. The hip was now reduced. There appeared be good positioning of the hip confirmed on intraoperative fluoroscopy. Spot films were obtained to document this. A second gram of TXA was given. The deep and superficial soft tissues were infiltrated with local analgesic. Bipolar cautery had been utilized intermittently through the procedure for hemostasis. The wound was irrigated copiously with pulse lavage mechanical irrigation. The fascia was repaired with Vicryl suture. The subcutaneous soft tissues were repaired in layers with Vicryl suture. The skin was approximated with pernio/Dermabond. Sterile dressings were applied. Patient was then awakened, transferred to a bed and taken to recovery in stable condition. Shemar PEREZ assisted with the complex procedure.
[2021-08-07] MEDS ORDERED: HYDROmorphone 1 MG/ML 1 ML SYRINGE IVP PRN ×3 (14:08)
[2021-08-07] MEDS ORDERED: NALOXONE 0.4 MG/ML 1 ML VIAL IV PRN (14:08)
[2021-08-07] MEDS ORDERED: HYDROcodone/APAP 7.5-325MG 1 EACH TAB PO PRN (14:08)
[2021-08-07] MEDS ORDERED: ONDANSETRON 4 MG/2 ML VIAL IVP PRN (14:08)
--- NOTE | 2021-08-07 14:26 | XR ---
EXAMINATION TYPE: XR Hip Limited RT DATE OF EXAM: 08/07/2021 COMPARISON: NONE HISTORY: Postop TECHNIQUE: One view submitted. FINDINGS: There is postsurgical change in near anatomic alignment. There is soft tissue edema and emphysema. IMPRESSION: 1. Postoperative change. Appears in near-anatomic alignment.
[2021-08-07] MEDS: HYDROmorphone 0.5 MG/0.5 ML SYRINGE IVP PRN ×2 (14:55→15:10)
--- NOTE | 2021-08-07 15:13 | FL ---
EXAMINATION TYPE: FL guidance operating room DATE OF EXAM: 08/07/2021 HISTORY: Fluoroscopy time 18 seconds of fluoroscopy provided. IMPRESSION: 1. Fluoroscopy time.
[2021-08-07] MEDS: LACTATED RINGERS 1,000 ML IV SCH ×2 (17:02→17:04)
[2021-08-07] MEDS: HYDROcodone/APAP 5-325MG 1 EACH TAB PO PRN (20:25)
[2021-08-07] MEDS ORDERED: SENNOSIDES-DOCUSATE SODIUM 1 EACH TAB PO SCH (21:00)
[2021-08-08] MEDS: LACTATED RINGERS 1,000 ML IV SCH ×3 (03:32→12:08)
[2021-08-08] MEDS: HYDROcodone/APAP 5-325MG 1 EACH TAB PO PRN (06:02)
[2021-08-08 07:25] VITALS: BP 144/73; PULSE 91; RESP 20; TEMP 98.2
[2021-08-08] MEDS ORDERED: DOXAZOSIN 4 MG TAB PO SCH (09:00)
[2021-08-08] MEDS ORDERED: FAMOTIDINE 20 MG TAB PO SCH (09:00)
[2021-08-08] MEDS ORDERED: NON FORMULARY DRUG (Tadalafil [Cialis] 5 MG Tablet) PO SCH (09:00)
[2021-08-08] MEDS ORDERED: ENOXAPARIN 40 MG/0.4 ML SYRINGE SQ SCH (09:00)
[2021-08-08] MEDS ORDERED: ATORVASTATIN 40 MG TAB PO SCH (09:00)
[2021-08-08] MEDS ORDERED: FINASTERIDE 5 MG TAB PO SCH (09:00)
[2021-08-08] MEDS ORDERED: METOPROLOL SUCCINATE (ER) 25 MG TAB.ER.24H PO SCH (09:00)
[2021-08-08 09:29] LABS: Basophils # (A) 0.02 X 10*3/uL (0.00-0.10); Basophils % (A) 0.2 %; Eosinophils # (A) 0.01 X 10*3/uL (0.04-0.35); Eosinophils % (A) 0.1 %; HCT 31.7 % (39.6-50.0); HGB 10.3 g/dL (13.0-17.0); Immature Grans, Automated 0.6 %; Lymphocytes % (A) 9.6 %; MCH 30.5 pg (27.0-32.0); MCHC 32.5 g/dL (32.0-37.0); MCV 93.8 fL (80.0-97.0); Monocytes # (A) 1.09 X 10*3/uL (0.20-1.00); Monocytes % (A) 10.5 %; NRBC Per 100 WBC 0 /100 WBCS (0.0-0.0); Neutrophils # (A) 8.24 X 10*3/uL (1.80-7.70); Platelet Count 223 X 10*3/uL (140-440); RBC 3.38 X 10*6/uL (4.40-5.60); RDW 11.9 % (11.5-14.5); WBC 10.42 X 10*3/uL (4.50-10.00)
[2021-08-08] MEDS ORDERED: TIMOLOL 0.5% OPHTH DROPS 5 ML BTL BOTH EYES SCH (10:15)
[2021-08-08] MEDS ORDERED: PANTOPRAZOLE 40 MG/10 ML VIAL IVP SCH (10:15)
--- NOTE | 2021-08-08 10:29 | P.DS ---
Providers Date of admission: 08/07/2021 Expected date of discharge: 08/08/21 Attending physician: Norman Light Consults: 08/07/21 14:08 Consult Physician Routine Consulting Provider: Jesús Chase Consult Reason/Comments: Medical management Do you want consulting provider notified?: Yes Primary care physician: Manuela Chase [facility] Course: Date of admission: 08/07/2021 Date of discharge: 08/08/2021 Admission diagnosis: Right hip osteoarthritis Discharge diagnosis: Same Attending physician: Dr. Light Surgical procedures: Right total hip arthroplasty Brief history: Patient is a 71-year-old male with a history of progressive primary right hip osteoarthritis. At this point patient has failed conservative treatment measures and has opted to proceed with a elective right total hip arthroplasty. Hospital course: Details of patient's surgery can be found in operative report. Patient tolerated the procedure well and was subsequently transported to orthopedic floor. Patient's orthopeidc and medical care was provided daily. Patient had daily laboratory tests performed for evaluation of overall blood counts. Patient had daily physical therapy to include strengthening range of motion as well as education with walker ambulation. Patient was treated with Lovenox for their postoperative DVT prophylaxis during their inpatient stay. Patient was noted to have a relatively uneventful postoperative course. Patient reported satisfactory pain control with oral pain medications by postoperative day 1. Patient showed satisfactory progress with physical therapy. Patient moved steadily through the program and had no difficulty meeting the goals by postoperative day 1. Given patient's otherwise satisfactory course and having met physical therapy goals, plan is to discharge patient home with health services on postoperative day 1. Discharge condition/disposition: Patient will be discharged home with health services in stable condition. Discharge medications: Instructions are given on resumption of patient's normal daily medications per primary care recommendation, in addition patient will be prescribed [place]; Colace; patient to resume Plavix and aspirin daily for DVT prophylaxis. Discharge instructions: 1. Wound care and infection precautions, keep incision dry and covered while showering, no lotions, creams, moisturizers. No soaking, tubs, pools, hottubs. Do not scrub over the incision. 2. Weight-bear as tolerated with walker / cane until follow-up. 3. Ice and elevate when necessary. Do not exceed 20 minutes per hour with ice pack. 4. Utilize compression sleeve until seen at first follow up appointment. 5. Visiting nursing care. 6. Home physical therapy. 7. Pain meds and anticoagulants per prescription. 8. Pain medication has potential to cause constipation. Increase oral fluid and fiber intake. Contact primary care provider if you have not had a bowel movement within 48 hours after discharge 9. No anti-inflammatory medication until discussed at first post operative visit, this including Motrin, Aleve, Mobic, Diclofenac. 10. Follow up in office at 2 weeks postop with Shemar Sykes PA-C / Gary Rudolph PA-C 11. Follow up with your primary care doctor 7-10 days after discharge. 12. Contact [facility] with any questions, . Keep incision clean, dry, intact. While showering, cover silver foam dressing with Saran wrap. Silver foam dressing may be removed on 08/14/2021 Medications: [place] 7.5 mg/325 mg; Colace; resume Plavix and aspirin daily once home Assessment: Right hip osteoarthritis Procedures: Right total hip arthroplasty Patient Condition at Discharge: Good Plan - Discharge Summary Discharge Rx Participant: No New Discharge Prescriptions: New HYDROcodone/APAP 7.5-325MG [[place] 7.5] 1 each PO Q6HR PRN #30 tab PRN Reason: Pain Docusate [Colace] 100 mg PO DAILY #30 capsule No Action Brimonidine Tartrate [Alphagan P 0.15% Ophth Soln] 1 drops BOTH EYES BID Timolol [Betimol 0.5% Ophth Soln] 1 drop BOTH EYES BID Terazosin HCl 10 mg PO QAM Finasteride [Proscar] 5 mg PO QAM Ergocalciferol [Vitamin D2] 50,000 unit PO MO Tadalafil [Cialis] 5 mg PO DAILY Clopidogrel [Plavix] 75 mg PO DAILY #90 tablet Aspirin 81 mg PO DAILY #90 tab Atorvastatin [Lipitor] 40 mg PO QAM Metoprolol Succinate (ER) [Toprol Xl] 12.5 mg PO QAM Acetaminophen Tab [Tylenol] 500 mg PO Q6H PRN PRN Reason: Pain Discharge Medication List Brimonidine Tartrate [Alphagan P 0.15% Ophth Soln] 1 drops BOTH EYES BID 05/22/18 [History] Finasteride [Proscar] 5 mg PO QAM 05/22/18 [History] Terazosin HCl 10 mg PO QAM 05/22/18 [History] Timolol [Betimol 0.5% Ophth Soln] 1 drop BOTH EYES BID 05/22/18 [History] Ergocalciferol [Vitamin D2] 50,000 unit PO MO 09/15/18 [History] Tadalafil [Cialis] 5 mg PO DAILY 11/30/20 [History] Aspirin 81 mg PO DAILY #90 tab 01/30/21 [Rx] Clopidogrel [Plavix] 75 mg PO DAILY #90 tablet 01/30/21 [Rx] Acetaminophen Tab [Tylenol] 500 mg PO Q6H PRN 08/03/21 [History] Atorvastatin [Lipitor] 40 mg PO QAM 08/03/21 [History] Metoprolol Succinate (ER) [Toprol Xl] 12.5 mg PO QAM 08/03/21 [History] Docusate [Colace] 100 mg PO DAILY #30 capsule 08/08/21 [Rx] HYDROcodone/APAP 7.5-325MG [[place] 7.5] 1 each PO Q6HR PRN #30 tab 08/08/21 [Rx] Follow up Appointment(s)/Referral(s): Jesús Chase MD [STAFF PHYSICIAN] - 1 Week Stevan Sykes PAC [PHYSICIAN BASEBALL PITCHER] - 08/23/21 4:20 pm Patient Instructions/Handouts: Total Hip Replacement (DC) Activity/Diet/Wound Care/Special Instructions: Orthopedic Discharge Instructions: 1. Wound care and infection precautions, keep incision dry and covered while showering, no lotions, creams, moisturizers. No soaking, pools, hot tubs. Do not scrub over incision. 2. Weight-bear as tolerated with walker / cane until follow-up. 3. Ice and elevate when necessary. Do not exceed 20 minutes per hour with ice pack. 4. Utilize compression sleeve until seen at first follow up appointment. 5. Pain meds and anticoagulants per prescription. 6. Pain medication has potential to cause constipation. Increase oral fluid and fiber intake. Contact primary care provider if you have not had a bowel movement within 48 hours after discharge. 7. No anti-inflammatory medication until discussed at first post operative visit, this including Motrin, Aleve, Mobic, Diclofenac. 8. Follow up in office at 2 weeks postop with Shemar Sykes PA-C / Gary Rudolph PA-C 9. Follow up with your primary care doctor 7-10 days after discharge. 10. Contact [facility] with any questions, . keep incision clean, dry, intact. While showering, cover dressing with Saran wrap. Dressing may be removed on Saturday,08/14/2021 Medications: [place] 7.5 mg/325 mg; Colace; resume Plavix and aspirin daily once home Discharge Disposition: HOME WITH HOME HEALTH SERVICES
--- NOTE | 2021-08-08 10:40 | P.PN ---
Subjective Progress Note Date: 08/08/21 Principal diagnosis: Right hip osteoarthritis Patient was seen at bedside this morning resting comfortably sitting up in chair. Patient says he is ready to go home. Patient says his hip does feel a little stiff, but gets better once he begins to walk. Patient says he worked wit h physical therapy this morning and walked out to the bearden and up-and-down a couple steps. Patient says he has not had bowel movement yet, however, patient says he has been passing gas. Patient says he is having some pain over his knee as he points to the medial aspect. Patient says he does have a walker at home. Patient denies chest pain, fever, shortness of breath, nausea, vomiting, change in vision, loss of bowel/bladder control. Objective - Vital Signs Vital signs: Vital Signs Temp 98.2 F 08/08/21 07:24 Pulse 91 08/08/21 07:24 Resp 20 08/08/21 07:24 BP 144/73 08/08/21 07:24 Pulse Ox 94 L 08/08/21 07:24 Intake & Output 08/07/21 08/08/21 08/08/21 18:59 06:59 18:59 Intake Total 1076 Output Total 80 300 Balance 996 -300 Weight 108 kg Intake: IV 1076 Output: Urine 300 Straight 300 Estimated Blood Loss 80 Other: # Voids 0 1 - Exam Right hip: Incision is clean, dry, and intact. The silver foam dressing is in good condition. There is minimal soft tissue swelling and ecchymosis surrounding the medial and lateral aspects of the incision. Calf is soft, no tenderness with palpation. Plantar flexion, dorsiflexion, EHL, FHL are intact. Sensory exam to light touch throughout the extremity is intact, dorsal pedis pulses 2+. - Labs CBC & Chem 7: 08/08/21 03:20 Labs: Abnormal Lab Results - Last 24 Hours (Table) 08/08/21 Range/Units 03:20 WBC 10.42 H (4.50-10.00) X 10*3/uL RBC 3.38 L (4.40-5.60) X 10*6/uL Hgb 10.3 L (13.0-17.0) g/dL Hct 31.7 L (39.6-50.0) % Immature Gran # 0.06 H (0.00-0.04) X 10*3/uL Neutrophils # 8.24 H (1.80-7.70) X 10*3/uL Monocytes # 1.09 H (0.20-1.00) X 10*3/uL Eosinophils # 0.01 L (0.04-0.35) X 10*3/uL Assessment and Plan Assessment: Right hip osteoarthritis Postoperative day #1 status post right total hip arthroplasty Plan: 1. Right hip osteoarthritis - right total hip arthroplasty performed yesterday, 08/07/2021. Patient stable at bedside this morning. Plan discharge home today with health services. 2. Appreciate medical management 3. Pain management - [place] 4. DVT ppx - Lovenox in hospital. Resume Aspirin and Plavix at home 5. GI ppx - Colace 6. Encuroage incentive spirometer use 7. PT/OT - weight bearing as tolerated with walker 8. Discharge planning - discharge home today with health services Time with Patient: Less than 30
== END 2021-08-08 12:26 | disposition home health service (06) ==
LOC: OR 11:03 → 4SSUR 14:03 → OR 08-08 12:26
PROVIDERS: ATTEND Orthopaedic Surgery
DX: M16.11 Unilateral primary osteoarthritis, right hip (principal); I25.10 Atherosclerotic heart disease of native coronary artery without angina pectoris; I10 Essential (primary) hypertension; E78.5 Hyperlipidemia, unspecified; M25.561 Pain in right knee; Z79.899 Other long term (current) drug therapy; Z79.02 Long term (current) use of antithrombotics/antiplatelets
CPT/HCPCS: 97161; 97165; 86900; 86901; 85025; 86850; 88300; 73501; 27130; C1776; S0138; J2250; J1100; J2710; J0690 ×3; J2405; J2001; J1650; J3010; J1170 ×2; J2370; J0330; J2704

== ENCOUNTER 2023-02-21 19:35 | Inpatient (IN) | payer MEDICARE ==
--- NOTE | 2023-02-21 20:56 | XR ---
EXAMINATION: XR chest 2V: 02/21/2023 8:48 PM CLINICAL INDICATION: difficulty breathing TECHNIQUE: Departmental protocol COMPARISON: 09/15/2018 FINDINGS: There is severe silhouetting of the pulmonary vasculature in the lower, mid and upper lung zones by a fine reticular pattern of increased density reaching the periphery as several septal lines and with multifocal bilateral lung areas of coalescing airspace opacity. These findings are consistent with ma rked interstitial/alveolar phase pulmonary edema. The pleural spaces show evidence of small bilateral pleural effusions. The cardiac silhouette appears mildly enlarged. EKG leads noted. The skeletal structures and soft tissues are negative for acute findings. IMPRESSION: Marked pulmonary edema.
[2023-02-21 21:06] LABS: Basophils % (A) 0 %; Eosinophils # (A) 0.2 k/uL (0-0.7); Eosinophils % (A) 2 %; HCT 33.6 % (39.0-53.0); HGB 11.2 gm/dL (13.0-17.5); Lymphocytes % (A) 11 %; MCH 30.7 pg (25.0-35.0); MCHC 33.3 g/dL (31.0-37.0); Mean Platelet Volume 9.6; Monocytes # (A) 0.6 k/uL (0-1.0); Monocytes % (A) 7 %; Neutrophils # (A) 7.5 k/uL (1.3-7.7); Neutrophils % (A) 80 %; Platelet Count 300 k/uL (150-450); RBC 3.65 m/uL (4.30-5.90); RDW 13.1 % (11.5-15.5); WBC 9.4 k/uL (3.8-10.6)
[2023-02-21 21:09] LABS: Partial Thromboplastin Time 23.6 sec (22.0-30.0); Prothrombin Time 10.4 sec (9.0-12.0)
[2023-02-21 21:16] LABS: ALT 67 U/L (4-49); AST 75 U/L (17-59); African American GFR (CKD) >90 (>60 ml/min/1.73 sqM); Albumin 3.6 g/dL (3.5-5.0); Alkaline Phosphatase 100 U/L (38-126); Anion Gap 10 mmol/L; Blood Urea Nitrogen 17 mg/dL (9-20); Calcium 8.9 mg/dL (8.4-10.2); Carbon Dioxide 23 mmol/L (22-30); Chloride 110 mmol/L (98-107); Glucose 109 mg/dL (74-99); Non-African American GFR(CKD) >90 (>60 ml/min/1.73 sqM); Potassium 4.3 mmol/L (3.5-5.1); Sodium 143 mmol/L (137-145); Total Bilirubin 0.4 mg/dL (0.2-1.3); Total Protein 6.3 g/dL (6.3-8.2)
[2023-02-21 21:24] LABS: NT-Pro-B-Type Natriuretic Pept 5150 pg/mL
[2023-02-21] MEDS ORDERED: NITROGLYCERIN SL TABS 0.4 MG TAB SUBLINGUAL STA (21:51)
[2023-02-21] MEDS ORDERED: NITROGLYCERIN OINT 1 INCH/GM PACKET TOPICAL STA (21:52)
--- NOTE | 2023-02-21 22:24 | ED ---
General Adult HPI - General Chief complaint: Shortness of Breath Stated complaint: trouble breathing Time Seen by Provider: 02/21/23 21:09 Source: patient, RN notes reviewed Mode of arrival: ambulatory Limitations: no limitations - History of Present Illness Initial comments: 72-year-old male with past medical history significant for hypertens ion, hyperlipidemia, cardiac stents presents the emergency department with a chief complaint of shortness of breath. Patient reports worsening shortness of breath 1 week. Patient reports his shortness of breath worse upon exertion. He has not taken anything for his symptoms. He denies any known fevers, cough, chest pain, palpitations, nausea, vomiting. - Related Data Home Medications Medication Instructions Recorded Confirmed Brimonidine Tartrate [Alphagan P 1 drops BOTH EYES BID 05/22/18 08/03/21 0.15% Ophth Soln] Finasteride [Proscar] 5 mg PO QAM 05/22/18 08/03/21 Terazosin HCl 10 mg PO QAM 05/22/18 08/03/21 Timolol [Betimol 0.5% Ophth Soln] 1 drop BOTH EYES BID 05/22/18 08/03/21 Ergocalciferol [Vitamin D2] 50,000 unit PO MO 09/15/18 08/03/21 tadalafiL [Cialis] 5 mg PO DAILY 11/30/20 08/03/21 Acetaminophen Tab [Tylenol] 500 mg PO Q6H PRN 08/03/21 08/03/21 Atorvastatin [Lipitor] 40 mg PO QAM 08/03/21 08/03/21 Metoprolol Succinate (ER) [Toprol 12.5 mg PO QAM 08/03/21 08/03/21 Xl] Previous Rx's Medication Instructions Recorded Aspirin 81 mg PO DAILY #90 tab 01/30/21 Clopidogrel [Plavix] 75 mg PO DAILY #90 tablet 01/30/21 Docusate [Colace] 100 mg PO DAILY #30 capsule 08/08/21 HYDROcodone/APAP 7.5-325MG [[place] 1 each PO Q6HR PRN #30 tab 08/08/21 7.5] Allergies Allergy/AdvReac Type Severity Reaction Status Date / Time No Known Allergies Allergy Verified 02/21/23 19:46 Review of Systems ROS Statement: Those systems with pertinent positive or pertinent negative responses have been documented in the HPI. ROS Other: All systems not noted in ROS Statement are negative. Past Medical History Past Medical History: Eye Disorder, Hyperlipidemia, Osteoarthritis (OA), Prostate Disorder Additional Past Medical History / Comment(s): SEE DR CARRIZALES HISTORY AND PHYSICAL FOR CARDIAC HISTORY , RIGHT HIP PAIN,INCREASED PRESSURE OF THE EYE" History of Any Multi-Drug Resistant Organisms: None Reported Past Surgical History: Hernia Repair Additional Past Surgical History / Comment(s): RECONSTRUCTION RT CHEEK BONE. COLONOSCOPY. LT CATARACT REMOVAL Past Anesthesia/Blood Transfusion Reactions: No Reported Reaction Past Psychological History: No Psychological Hx Reported Smoking Status: Never smoker Past Alcohol Use History: Daily Past Drug Use History: None Reported - Past Family History Brother(s) Family Medical History: Cancer General Exam Limitations: no limitations Course Vital Signs 02/21/23 02/21/23 02/21/23 19:44 20:41 21:51 Temperature 98.2 F Pulse Rate 102 H 90 Respiratory 22 22 20 Rate Blood Pressure 140/86 135/83 O2 Sat by Pulse 97 95 Oximetry 02/21/23 02/21/23 22:13 23:03 Temperature Pulse Rate 94 96 Respiratory 18 18 Rate Blood Pressure 142/81 150/70 O2 Sat by Pulse 94 L 94 L Oximetry - Reevaluation(s) Reevaluation #1: 02/22/23 00:[address] Chase, who agrees and accepts the patient for admission EKG Findings - EKG Comments: EKG Findings:: I interpreted the following: EKG performed at 20:03 and 99 beats per minute normal sinus rhythm SD interval 196, QRS duration 103, QT/QTc 328/384 Procedures - [place] Protocol (Time Out) Nurse: Phoebe Gallego Medical Decision Making - Medical Decision Making Was pt. sent in by a medical professional or institution (, PA, METAL [employer]ATER, urgent care, hospital, or half-way...) When possible be specific @ -[No] Did you speak to anyone other than the patient for history (EMS, parent, family, police, friend...)? What history was obtained from this source @ -[No] Did you review nursing and triage notes (agree or disagree)? Why? @ -[I reviewed and agree with nursing and triage notes] Were old charts reviewed (outside hosp., previous admission, EMS record, old EKG, old radiological studies, urgent care reports/EKG's, half-way records)? Report findings @ -[No old charts were reviewed] Differential Diagnosis (chest pain, altered mental status, abdominal pain women, abdominal pain men, vaginal bleeding, weakness, fever, dyspnea, syncope, headache, dizziness, GI bleed, back pain, seizure, CVA, palpatations, mental health, musculoskeletal)? @ -[not applicable] EKG interpreted by me (3pts min.). @ -[As above] X-rays interpreted by me (1pt min.). @ -[None done] CT interpreted by me (1pt min.). @ -[None done] U/S interpreted by me (1pt. min.). @ -[None done] What testing was considered but not performed or refused? (CT, X-rays, U/S, labs)? Why? @ -[None] What meds were considered but not given or refused? Why? @ -[None] Did you discuss the management of the patient with other professionals (professionals i.e. , PA, METAL COATER, lab, RT, psych nurse, oncology social work, care partner, teacher, code enforcement officer, residential case manager)? Give summary @ -Case discussed with Dr. hCase who agrees and accepts the patient Was smoking cessation discussed for >3mins.? @ -[No] Was critical care preformed (if so, how long)? @ -[No] Were there social determinants of health that impacted care today? How? (Homelessness, low income, unemployed, alcoholism, drug addiction, transportation, low edu. Level, literacy, decrease access to med. care, mcc, rehab)? @ -[No] Was there de-escalation of care discussed even if they declined (Discuss DNR or withdrawal of care, Hospice)? DNR status @ -[No] What co-morbidities impacted this encounter? (DM, HTN, Smoking, COPD, CAD, Cancer, CVA, ARF, Chemo, Hep., AIDS, mental health diagnosis, sleep apnea, morbid obesity)? @ -[None] Was patient admitted / discharged? Hospital course, mention meds given and route, prescriptions, significant lab abnormalities, going to OR and other pertinent info. @ Admission. This is a pleasant 72-year-old male with a past medical history significant for hypertension, hyperlipidemia, cardiac stent who presents the emergency department with increased shortness of breath. Patient had a thorough history and physical exam performed on the ED. Patient is tachycardic and slightly tachypneic. Oxygen saturation between 94-95% on room air. Patient had laboratory studies performed which reveals WBC 9.4, hemoglobin 11.2 platelets and studies unremarkable sodium 143, potassium 4.3 lactic acid 1.4 initial troponin 0.694 secondary troponin 0.8 to BNP 5150 I interpreted the following: Chest x-ray reveals severe cellulitic of the p ulmonary vasculature in the lower and mid upper lung zones evidence of marked pulmonary edema I discussed the results in detail with the patient verbalized understanding and all questions were addressed. He is agreeable for plan for admission. Patient was offered nasal cannula and BiPAP however he declined at the time of evaluation. Patient will be admitted to Dr. Chase consult to cardiology for echocardiogram. Patient given nitroglycerin and nitroglycerin paste without resolution of hypertension. Patient given lisinopril. Dr. Ann no need to heparinize patient at this time. Case discussed with MICHEAL Weber who agrees with plan of care Undiagnosed new problem with uncertain prognosis? @ -[No] Drug Therapy requiring intensive monitoring for toxicity (Heparin, Nitro, Insulin, Cardizem)? @ -[No] Were any procedures done? @ -[No] Diagnosis/symptom? @ - CHF EXACERBATION Shortness of Breath Acute, or Chronic, or Acute on Chronic? @ -Acute Uncomplicated (without systemic symptoms) or Complicated (systemic symptoms)? @ -Uncomplicated Side effects of treatment? @ -[No] Exacerbation, Progression, or Severe Exacerbation? @ -[No] Poses a threat to life or bodily function? How? (Chest pain, [place], [place], pneumonia, PE, COPD, DKA, ARF, appy, cholecystitis, CVA, Diverticulitis, Homicidal, Suicidal, threat to staff... and all critical care pts) @ -High likelihood, COPD - Lab Data Result diagrams: 02/21/23 20:36 02/21/23 20:36 Lab Results 02/21/23 02/21/23 02/21/23 Range/Units 20:36 20:36 20:36 WBC 9.4 (3.8-10.6) k/uL RBC 3.65 L (4.30-5.90) m/uL Hgb 11.2 L (13.0-17.5) gm/dL Hct 33.6 L (39.0-53.0) % MCV 92.0 (80.0-100.0) fL MCH 30.7 (25.0-35.0) pg MCHC 33.3 (31.0-37.0) g/dL RDW 13.1 (11.5-15.5) % Plt Count 300 (150-450) k/uL MPV 9.6 Neutrophils % 80 % Lymphocytes % 11 % Monocytes % 7 % Eosinophils % 2 % Basophils % 0 % Neutrophils # 7.5 (1.3-7.7) k/uL Lymphocytes # 1.0 (1.0-4.8) k/uL Monocytes # 0.6 (0-1.0) k/uL Eosinophils # 0.2 (0-0.7) k/uL Basophils # 0.0 (0-0.2) k/uL PT 10.4 (9.0-12.0) sec INR 1.0 (<1.2) APTT 23.6 (22.0-30.0) sec Sodium 143 (137-145) mmol/L Potassium 4.3 (3.5-5.1) mmol/L Chloride 110 H (98-107) mmol/L Carbon Dioxide 23 (22-30) mmol/L Anion Gap 10 mmol/L BUN 17 (9-20) mg/dL Creatinine 0.70 (0.66-1.25) mg/dL Est GFR (CKD-EPI)AfAm >90 (>60 ml/min/1.73 sqM) Est GFR (CKD-EPI)NonAf >90 (>60 ml/min/1.73 sqM) Glucose 109 H (74-99) mg/dL Plasma Lactic Acid Néstor (0.7-2.0) mmol/L Calcium 8.9 (8.4-10.2) mg/dL Total Bilirubin 0.4 (0.2-1.3) mg/dL AST 75 H (17-59) U/L ALT 67 H (4-49) U/L Alkaline Phosphatase 100 (38-126) U/L Troponin I (0.000-0.034) ng/mL NT-Pro-B Natriuret Pep 5150 pg/mL Total Protein 6.3 (6.3-8.2) g/dL Albumin 3.6 (3.5-5.0) g/dL 02/21/23 02/21/23 02/21/23 Range/Units 20:36 20:41 22:29 WBC (3.8-10.6) k/uL RBC (4.30-5.90) m/uL Hgb (13.0-17.5) gm/dL Hct (39.0-53.0) % MCV (80.0-100.0) fL MCH (25.0-35.0) pg MCHC (31.0-37.0) g/dL RDW (11.5-15.5) % Plt Count (150-450) k/uL MPV Neutrophils % % Lymphocytes % % Monocytes % % Eosinophils % % Basophils % % Neutrophils # (1.3-7.7) k/uL Lymphocytes # (1.0-4.8) k/uL Monocytes # (0-1.0) k/uL Eosinophils # (0-0.7) k/uL Basophils # (0-0.2) k/uL PT (9.0-12.0) sec INR (<1.2) APTT (22.0-30.0) sec Sodium (137-145) mmol/L Potassium (3.5-5.1) mmol/L Chloride (98-107) mmol/L Carbon Dioxide (22-30) mmol/L Anion Gap mmol/L BUN (9-20) mg/dL Creatinine (0.66-1.25) mg/dL Est GFR (CKD-EPI)AfAm (>60 ml/min/1.73 sqM) Est GFR (CKD-EPI)NonAf (>60 ml/min/1.73 sqM) Glucose (74-99) mg/dL Plasma Lactic Acid Néstor 1.4 (0.7-2.0) mmol/L Calcium (8.4-10.2) mg/dL Total Bilirubin (0.2-1.3) mg/dL AST (17-59) U/L ALT (4-49) U/L Alkaline Phosphatase (38-126) U/L Troponin I 0.694 H* 0.832 H* (0.000-0.034) ng/mL NT-Pro-B Natriuret Pep pg/mL Total Protein (6.3-8.2) g/dL Albumin (3.5-5.0) g/dL Disposition Clinical Impression: Congestive heart failure, Shortness of breath Disposition: ADMITTED IP TO THIS HOSP Condition: Fair Is patient prescribed a controlled substance at d/c from ED?: No Time of Disposition: 00:47
[2023-02-22] MEDS ORDERED: lisinopriL 10 MG TAB PO STA (00:42)
[2023-02-22] MEDS ORDERED: HYDROcodone/APAP 7.5-325MG 1 EACH TAB PO PRN (00:55)
[2023-02-22] MEDS ORDERED: ACETAMINOPHEN TAB 500 MG TAB PO PRN (00:55)
[2023-02-22] MEDS ORDERED: NITROGLYCERIN OINT 1 INCH/GM PACKET TOPICAL SCH (06:00)
[2023-02-22] MEDS ORDERED: CLOPIDOGREL 75 MG TAB PO SCH (09:00)
[2023-02-22] MEDS ORDERED: DOCUSATE 100 MG CAP PO SCH (09:00)
[2023-02-22] MEDS ORDERED: METOPROLOL SUCCINATE (ER) 25 MG TAB.ER.24H PO SCH (09:00)
[2023-02-22] MEDS: DOXAZOSIN 4 MG TAB PO SCH (09:48)
[2023-02-22] MEDS: ATORVASTATIN 40 MG TAB PO SCH (09:48)
[2023-02-22] MEDS: ASPIRIN 81 MG PO SCH (09:48)
[2023-02-22] MEDS: BRIMONIDINE TARTRATE 0.2% DROPS 5 ML BTL BOTH EYES SCH ×2 (09:48→19:56)
[2023-02-22] MEDS: FUROSEMIDE 10 MG/ML 4 ML VIAL IV SCH ×2 (09:49→19:56)
[2023-02-22] MEDS: ENOXAPARIN 40 MG/0.4 ML SYRINGE SQ SCH (09:49)
[2023-02-22] MEDS: METOPROLOL SUCCINATE (ER) 25 MG TAB.ER.24H PO SCH (09:49)
[2023-02-22] MEDS: FINASTERIDE 5 MG TAB PO SCH (09:49)
[2023-02-22] MEDS: TIMOLOL 0.5% OPHTH DROPS 5 ML BTL BOTH EYES SCH ×2 (09:50→19:56)
[2023-02-22] MEDS: NON FORMULARY DRUG (Tadalafil [Cialis] 5 MG Tablet) PO SCH (09:50)
--- NOTE | 2023-02-22 10:41 | CA ---
Transthoracic Echo Report Name: Curtis Wick Age: 72 Gender: M : 1950 Exam Date: 02/22/2023 09:07 Exam Location: [facility] Ht (in): 71 Wt (lb): 240 Ordering Physician: Amaya Meyers Attending/Referring Phys: Research Manufacturing Operator Dorian Ruiz Procedure CPT: Indications: Heart failure Cardiac Hx: Technical Quality: Technically difficult study Contrast 1: Total Dose (mL): Contrast 2: Total Dose (mL): MEASUREMENTS (Male / Female) Normal Values 2D ECHO LV Diastolic Diameter PLAX 5.1 cm 4.2 - 5.9 / 3.9 - 5.3 cm LV Systolic Diameter PLAX 3.8 cm IVS Diastolic Thickness 1.3 cm 0.6 - 1.0 / 0.6 - 0.9 cm LVPW Diastolic Thickness 1.3 cm 0.6 - 1.0 / 0.6 - 0.9 cm LV Relative Wall Thickness 0.5 RV Internal Dim ED PLAX 3.0 cm LVOT Diameter 2.2 cm Aortic Root Diameter 2.9 cm LA Systolic Diameter LX 3.3 cm 3.0 - 4.0 / 2.7 - 3.8 cm LV Diastolic Volume MOD BP 135.0 cm??? 67 - 155 / 56 - 104 cm??? LV Systolic Volume MOD BP 80.4 cm??? - / 19 - 49 cm??? LV Ejection Fraction MOD BP 40.4 % >= 55 % LV Cardiac Index MOD BP 2669.2 cm???/min???m??? LV Diastolic Volume MOD 4C 141.8 cm??? LV Systolic Volume MOD 4C 81.6 cm??? LV Ejection Fraction MOD 4C 42.5 % LV Cardiac Index MOD 4C 2950.4 cm???/min???m??? LV Diastolic Length 4C 8.5 cm LV Systolic Length 4C 8.2 cm LV Diastolic Volume MOD 2C 126.5 cm??? LV Systolic Volume MOD 2C 74.7 cm??? LV Ejection Fraction MOD 2C 41.0 % LV Cardiac Index MOD 2C 2537.1 cm???/min???m??? LV Diastolic Length 2C 8.7 cm LV Systolic Length 2C 8.8 cm LA Volume 50.7 cm??? / 22 - 52 cm??? LA Volume Index 21.4 cm???/m??? 16 - 28 cm???/m??? Ascending Aorta Diameter 2.9 cm DOPPLER AV Peak Velocity 307.3 cm/s AV Peak Gradient 37.8 mmHg AV Mean Velocity 238.4 cm/s AV Mean Gradient 26.0 mmHg AV Velocity Time Integral 66.0 cm LVOT Peak Velocity 84.6 cm/s LVOT Peak Gradient 2.9 mmHg LVOT Velocity Time Integral 17.5 cm LVOT Stroke Volume 67.0 cm??? LVOT Stroke Volume Index 29.4 ml/m??? LVOT Cardiac Index 3278.3 cm???/min???m??? AV Area Cont Eq vti 1.0 cm??? AV Area Cont Eq pk 1.1 cm??? MV Peak Velocity 165.0 cm/s MV Peak Gradient 10.9 mmHg MV Mean Velocity 73.1 cm/s MV Mean Gradient 3.1 mmHg MV Velocity Time Integral 40.7 cm MR Peak Velocity 547.2 cm/s MR Peak Gradient 119.8 mmHg MV E' Velocity 6.0 cm/s TR Peak Velocity 225.1 cm/s TR Peak Gradient 20.3 mmHg Right Ventricular Systolic Press 27.1 mmHg PV Peak Velocity 124.1 cm/s PV Peak Gradient 6.2 mmHg FINDINGS Left Ventricle Normal LV size. Mildly increased septal wall thickness. Moderately increased left ventricular systolic volume. Moderately decreased left ventricular ejection fraction. Left ventricular ejection fraction is estimated at 35-40 %. Right Ventricle Normal right ventricular size. Right Atrium Normal right atrial size. Left Atrium Normal left atrial size. LA volume index= 22ml/m2 Mitral Valve Mild posterior MAC. . Moderate MR. Aortic Valve Aortic valve not well visualized. At least moderate AV calcification. AV max gradient= 45.2mmHg. AV mean gradient= 26.0mmHg. Tricuspid Valve Tricuspid valve not well visualized. Trace TR. Pulmonic Valve Pulmonic valve not well visualized. No pulmonic regurgitation. Pericardium Grossly normal. Aorta Normal size aortic root and proximal ascending aorta. CONCLUSIONS Left ventricle is mildly enlarged the global decrease in contractility estimated ejection fraction of 35%. Left atrium is mildly enlarged. There is mitral annular calcification with moderate mitral regurgitation. There is calcification of aortic valve leaflets with restriction and moderate aortic stenosis with a mean gradient of 25 mmHg. No pericardial effusion no pulmonary hypertension Previewed by: Dr. Yana Hernandez MD (Electronically Signed) Final Date: 22 February 2023 10:40
--- NOTE | 2023-02-22 11:10 | P.CRDCN ---
History of Present Illness History of present illness: HISTORY OF PRESENT ILLNESS: This is a 72-year-old male with a past medical history significant for coronary artery disease with previous stenting of the mid LAD, aortic stenosis, hypertension, and hyperlipidemia. Patient follows in the office with Dr. Monet. We have been asked to see the patient in consultation for congestive heart failure. Patient examined at the bedside. Patient presented to the hospital for chief complaint of shortness of breath. He states his shortness of breath started about a month ago and has been progressively getting worse. He states when he cut the grass, he had to stop to take frequent rest which he has not had to do previously. He denies any chest pain or pressure. He denied any swelling in his lower extremities. He does report a tennis 15 pound weight gain over the past 2 months. He denies a history of congestive heart failure. * EKG reveals sinus mechanism with T-wave inversions laterally, appear new compared to old EKG. * Chest xray marked pulmonary edema * Laboratory data: W BC 9.4. Hemoglobin 11.2. Platelet count 300. Sodium 143. Potassium 4.3. BUN 17. Creatinine 0.70. Troponin 0.694. 0.832. ProBNP 5 150. * Current home cardiac medications include aspirin 81 mg daily, lisinopril 10 mg daily, Lipitor 40 mg daily * Echocardiogram completed this admission reveals ejection fraction 35-40%, moderate MR, trace TR, moderate aortic stenosis with a mean gradient of 25 mmHg, moderate mitral regurgitation * Echocardiogram performed in the April 2022 revealed normal EF, moderate , mild MR, mild TR * Cardiac catheterization history: January 2021 with stenting to the mid LAD REVIEW OF SYSTEMS: At the time of my exam: CONSTITUTIONAL: Denies fever or chills. HEENT: Denies blurred vision, vision changes, or eye pain. Denies hemoptysis CARDIOVASCULAR: Denies chest pain. Denies orthopnea. Denies PND. Denies palpitations RESPIRATORY: Reports shortness of breath. GASTROINTESTINAL: Denies abdominal pain. Denies nausea or vomiting. HEMATOLOGIC: Denies bleeding disorders. GENITOURINARY: Denies any blood in urine. SKIN: Denies pruitis. Denies rash. PHYSICAL EXAM: VITAL SIGNS: Reviewed. GENERAL: Well-developed in no acute distress. HEENT: Head is normocephalic. Pupils are equal, round. Sclerae anicteric. Mucous membranes of the mouth are moist. Neck supple. No JVD or thyromegaly LUNGS: Respirations even and unlabored. Lungs diminished with crackles bilaterally HEART: Regular rate and rhythm. Systolic murmur noted. No S2 auscultated. ABDOMEN: Soft. Nondistended. Nontender. EXTREMITIES: Normal range of motion. No clubbing or cyanosis. Peripheral pulses intact. No lower extremity edema NEUROLOGIC: Awake and alert. Oriented x 3. 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% Valvular heart disease including moderate aortic stenosis and moderate mitral regurgitation Coronary artery disease with previous stenting of the LAD, 2020 Hypertension Hyperlipidemia PLAN: Continue current cardiac medications Begin Lasix 40 mg IV every 12 hours Daily weights, accurate I&O, and monitor kidney function Optimize heart failure and then recommend cardiac catheterization to be performed secondary to new onset cardiomyopathy We'll tentatively plan for cardiac catheterization on Saturday pending patient's progress Further recommendations pending patient's course Nurse practitioner note has been reviewed by physician. Signing provider agrees with the documented findings, assessment, and plan of care. Past Medical History Past Medical History: Eye Disorder, Hyperlipidemia, Osteoarthritis (OA), Prostate Disorder Additional Past Medical History / Comment(s): SEE DR CARRIZALES HISTORY AND PHYSICAL FOR CARDIAC HISTORY , RIGHT HIP PAIN,INCREASED PRESSURE OF THE EYE" History of Any Multi-Drug Resistant Organisms: None Reported Past Surgical History: Hernia Repair Additional Past Surgical History / Comment(s): RECONSTRUCTION RT CHEEK BONE. COLONOSCOPY. LT CATARACT REMOVAL Past Anesthesia/Blood Transfusion Reactions: No Reported Reaction Past Psychological History: No Psychological Hx Reported Smoking Status: Never smoker Past Alcohol Use History: Daily Additional Past Alcohol Use History / Comment(s): DRINKS BEER- OVER 14 PER WEEK Past Drug Use History: None Reported - Past Family History Brother(s) Family Medical History: Cancer Medications and Allergies Home Medications Medication Instructions Recorded Confirmed Type Finasteride [Proscar] 5 mg PO DAILY 05/22/18 02/22/23 History Terazosin HCl 10 mg PO BID 05/22/18 02/22/23 History Timolol [Betimol 0.5% Ophth Soln] 1 drop BOTH EYES BID 05/22/18 02/22/23 History tadalafiL [Cialis] 5 mg PO DAILY 11/30/20 02/22/23 History Aspirin 81 mg PO DAILY #90 tab 01/30/21 02/22/23 Rx Atorvastatin [Lipitor] 40 mg PO DAILY 08/03/21 02/22/23 History Metoprolol Succinate (ER) [Toprol 25 mg PO QAM 08/03/21 02/22/23 History Xl] Brimonidine Tartrate [Alphagan P 1 drop BOTH EYES BID 02/22/23 02/22/23 History 0.2% Ophth Soln] Ergocalciferol [Vitamin D2 (1250 1,250 mcg PO MO 02/22/23 02/22/23 History Mcg = 57226 Iu)] lisinopriL [Zestril] 10 mg PO DAILY 02/22/23 02/22/23 History Allergies Allergy/AdvReac Type Severity Reaction Status Date / Time No Known Allergies Allergy Verified 02/22/23 08:09 Physical Exam Vitals: Vital Signs Temp Pulse Pulse Resp BP BP BP 02/22/23 09:18 02/22/23 09:00 98.1 F 107 H 16 121/72 02/22/23 03:57 98.2 F 98 18 146/87 02/21/23 23:03 96 18 150/70 02/21/23 22:13 94 18 142/81 02/21/23 21:51 90 20 135/83 02/21/23 20:41 22 02/21/23 19:44 98.2 F 102 H 22 140/86 Pulse Ox 02/22/23 09:18 95 02/22/23 09:00 96 02/22/23 03:57 95 02/21/23 23:03 94 L 02/21/23 22:13 94 L 02/21/23 21:51 95 02/21/23 20:41 02/21/23 19:44 97 Intake and Output 02/21/23 02/22/23 02/22/23 22:59 06:59 14:59 Intake Total 240 Output Total 500 Balance -260 Intake: Oral 240 Output: Urine 500 Other: Voiding Method Toilet Toilet # Voids 1 Weight 108.862 kg 116.3 kg Results 02/21/23 20:36 02/21/23 20:36 Cardiac Enzymes 02/21/23 02/21/23 02/21/23 Range/Units 20:36 20:36 22:29 AST 75 H (17-59) U/L Troponin I 0.694 H* 0.832 H* (0.000-0.034) ng/mL Coagulation 02/21/23 Range/Units 20:36 PT 10.4 (9.0-12.0) sec APTT 23.6 (22.0-30.0) sec CBC 02/21/23 Range/Units 20:36 WBC 9.4 (3.8-10.6) k/uL RBC 3.65 L (4.30-5.90) m/uL Hgb 11.2 L (13.0-17.5) gm/dL Hct 33.6 L (39.0-53.0) % Plt Count 300 (150-450) k/uL Comprehensive Metabolic Panel 02/21/23 Range/Units 20:36 Sodium 143 (137-145) mmol/L Potassium 4.3 (3.5-5.1) mmol/L Chloride 110 H (98-107) mmol/L Carbon Dioxide 23 (22-30) mmol/L BUN 17 (9-20) mg/dL Creatinine 0.70 (0.66-1.25) mg/dL Glucose 109 H (74-99) mg/dL Calcium 8.9 (8.4-10.2) mg/dL AST 75 H (17-59) U/L ALT 67 H (4-49) U/L Alkaline Phosphatase 100 (38-126) U/L Total Protein 6.3 (6.3-8.2) g/dL Albumin 3.6 (3.5-5.0) g/dL Current Medications Generic Name Dose Route Start Last Admin Trade Name Freq PRN Reason Stop Dose Admin Acetaminophen 500 mg 02/22/23 00:55 Acetaminophen Tab 500 Mg Tab PO Q6H PRN Pain Aspirin 81 mg 02/22/23 09:00 02/22/23 09:48 Aspirin 81 Mg PO 81 mg DAILY CELSA Administration Atorvastatin Calcium 40 mg 02/22/23 09:00 02/22/23 09:48 Atorvastatin 40 Mg Tab PO 40 mg QAM CELSA Administration Brimonidine Tartrate 1 drops 02/22/23 09:00 02/22/23 09:48 Brimonidine Tartrate 0.2% Drops 5 Ml Btl BOTH EYES 1 drops BID CELSA Administration Doxazosin Mesylate 8 mg 02/22/23 09:00 02/22/23 09:48 Doxazosin 4 Mg Tab PO 8 mg QAM CELSA Administration Enoxaparin Sodium 40 mg 02/22/23 09:00 02/22/23 09:49 Enoxaparin 40 Mg/0.4 Ml Syringe SQ 40 mg DAILY CELSA Administration Finasteride 5 mg 02/22/23 09:00 02/22/23 09:49 Finasteride 5 Mg Tab PO 5 mg QAM CELSA Administration Furosemide 40 mg 02/22/23 09:00 02/22/23 09:49 Furosemide 10 Mg/Ml 4 Ml Vial IV 40 mg Q12HR CELSA Administration Metoprolol Succinate 25 mg 02/22/23 09:00 02/22/23 09:49 Metoprolol Succinate (Er) 25 Mg Tab.Er.24h PO 25 mg QAM CELSA Administration Non-Formulary Medication 50,000 unit 02/25/23 09:00 Ergocalciferol PO MO [facility] Non-Formulary Medication 5 mg 02/22/23 09:00 02/22/23 09:50 Tadalafil [Cialis] PO Not Given DAILY CELSA Sodium Chloride 10 ml 02/22/23 09:00 02/22/23 09:50 Sodium Chloride 0.9% Flush 10 Ml Syringe IV 10 ml BID CELSA Administration Timolol Maleate 1 drops 02/22/23 09:00 02/22/23 09:50 Timolol 0.5% Ophth Drops 5 Ml Btl BOTH EYES 1 drops BID CELSA Administration Intake and Output 02/21/23 02/22/23 02/22/23 22:59 06:59 14:59 Intake Total 240 Output Total 500 Balance -260 Intake: Oral 240 Output: Urine 500 Other: Voiding Method Toilet Toilet # Voids 1 Weight 108.862 kg 116.3 kg 02/21/23 20:36 02/21/23 20:36
[2023-02-22] MEDS ORDERED: LORazepam 2 MG/ML INJ IV PRN ×2 (12:13)
--- NOTE | 2023-02-22 12:37 | P.HPIM ---
History of Present Illness H&P Date: 02/22/23 Chief Complaint: Dyspnea This is a 72-year-old gentleman with past medical history significant for CAD, stent placement and reports normal stress test approximately 1 year ago , hyperlipidemia, osteoarthritis, prostate disorder, and daily alcohol use-drinks beer greater than 14 per week presented to the ER with worsening shortness of breath accompanied by waking. Patient reports approximately one month ago while mowing his grass developed shortness of breath-. Required him to stop and take a break. Weight gain of 10-15 pounds over the last couple months. Minimal exe rtional shortness of breath continued to worsen with minimal lower extremity edema. Denies chest pain, palpitations. Chest x-ray reporting marked pulmonary edema. EKG reported sinus rhythm, septal myocardial infarction of indeterminate age, moderate abnormal lateral T waves, troponins 0.694, 0.832. ProBNP 5150 .Afebrile, normal WBC, hemoglobin 9.2, platelets 300. INR 1. Electrolytes within normal limits, renal function stable. Evaluated by cardiology, diuretics initiated, echo ordered. This morning breathing easier, maintaining O2 sats in the mid 90s on room air. Denies chest pain, palpitations. Review of Systems ROS Statement: Those systems with pertinent positive or pertinent negative responses have been documented in the HPI. ROS Other: All systems not noted in ROS Statement are negative. Past Medical History Past Medical History: Eye Disorder, Hyperlipidemia, Osteoarthritis (OA), Prostate Disorder Additional Past Medical History / Comment(s): SEE DR CARRIZALES HISTORY AND PHYSICAL FOR CARDIAC HISTORY , RIGHT HIP PAIN,INCREASED PRESSURE OF THE EYE" History of Any Multi-Drug Resistant Organisms: None Reported Past Surgical History: Hernia Repair Additional Past Surgical History / Comment(s): RECONSTRUCTION RT CHEEK BONE. COLONOSCOPY. LT CATARACT REMOVAL Past Anesthesia/Blood Transfusion Reactions: No Reported Reaction Past Psychological History: No Psychological Hx Reported Smoking Status: Never smoker Past Alcohol Use History: Daily Additional Past Alcohol Use History / Comment(s): DRINKS BEER- OVER 14 PER WEEK Past Drug Use History: None Reported - Past Family History Brother(s) Family Medical History: Cancer Medications and Allergies Home Medications Medication Instructions Recorded Confirmed Type Finasteride [Proscar] 5 mg PO DAILY 05/22/18 02/22/23 History Terazosin HCl 10 mg PO BID 05/22/18 02/22/23 History Timolol [Betimol 0.5% Ophth Soln] 1 drop BOTH EYES BID 05/22/18 02/22/23 History tadalafiL [Cialis] 5 mg PO DAILY 11/30/20 02/22/23 History Aspirin 81 mg PO DAILY #90 tab 01/30/21 02/22/23 Rx Atorvastatin [Lipitor] 40 mg PO DAILY 08/03/21 02/22/23 History Metoprolol Succinate (ER) [Toprol 25 mg PO QAM 08/03/21 02/22/23 History Xl] Brimonidine Tartrate [Alphagan P 1 drop BOTH EYES BID 02/22/23 02/22/23 History 0.2% Ophth Soln] Ergocalciferol [Vitamin D2 (1250 1,250 mcg PO MO 02/22/23 02/22/23 History Mcg = 86975 Iu)] lisinopriL [Zestril] 10 mg PO DAILY 02/22/23 02/22/23 History Allergies Allergy/AdvReac Type Severity Reaction Status Date / Time No Known Allergies Allergy Verified 02/22/23 08:09 Physical Exam Vitals: Vital Signs Temp Pulse Pulse Resp BP BP BP 02/22/23 09:18 02/22/23 09:00 98.1 F 107 H 16 121/72 02/22/23 03:57 98.2 F 98 18 146/87 02/21/23 23:03 96 18 150/70 02/21/23 22:13 94 18 142/81 02/21/23 21:51 90 20 135/83 02/21/23 20:41 22 02/21/23 19:44 98.2 F 102 H 22 140/86 Pulse Ox 02/22/23 09:18 95 02/22/23 09:00 96 02/22/23 03:57 95 02/21/23 23:03 94 L 02/21/23 22:13 94 L 02/21/23 21:51 95 02/21/23 20:41 02/21/23 19:44 97 Intake and Output 02/21/23 02/22/23 02/22/23 22:59 06:59 14:59 Intake Total 240 Output Total 500 Balance -260 Intake: Oral 240 Output: Urine 500 Other: Voiding Method Toilet Toilet # Voids 1 Weight 108.862 kg 116.3 kg PHYSICAL EXAM: VITAL SIGNS: As above GENERAL: Sitting up in chair, no acute distress HEENT: Normocephalic Conjunctivae normal. eyes normal. NECK: Supple, No JVD. No thyroid enlargement. No LNs CARDIOVASCULAR: S1, S2 regular. Systolic murmur RESPIRATION: Breath sounds diminished in the bases. No rhonchi or crackles. No bronchial breathing. ABDOMEN: Soft, nontender . No guarding. no masses palpable. No ascites, No hepatosplenomegaly.Bowel sounds heard. LEGS: Trace edema. no calf tenderness, positive DP pulses. PSYCHIATRY: Alert and oriented X3, mood and affect normal. NERVOUS SYSTEM: Cranial N 2-12 grossly normal. No focal deficits. Strength and sensation grossly intact. Skin: Warm and dry, no rash Results CBC & Chem 7: 02/21/23 20:36 02/21/23 20:36 Labs: Abnormal Lab Results - Last 24 Hours (Table) 02/21/23 02/21/23 02/21/23 Range/Units 20:36 20:36 20:36 RBC 3.65 L (4.30-5.90) m/uL Hgb 11.2 L (13.0-17.5) gm/dL Hct 33.6 L (39.0-53.0) % Chloride 110 H (98-107) mmol/L Glucose 109 H (74-99) mg/dL AST 75 H (17-59) U/L ALT 67 H (4-49) U/L Troponin I 0.694 H* (0.000-0.034) ng/mL 02/21/23 Range/Units 22:29 RBC (4.30-5.90) m/uL Hgb (13.0-17.5) gm/dL Hct (39.0-53.0) % Chloride (98-107) mmol/L Glucose (74-99) mg/dL AST (17-59) U/L ALT (4-49) U/L Troponin I 0.832 H* (0.000-0.034) ng/mL Thrombosis Risk Factor Assmnt - Choose All That Apply Any of the Below Risk Factors Present?: Yes Each Factor Represents 1 point: Obesity (BMI >25) Each Risk Factor Represents 2 Points: Age 61-74 years Thrombosis Risk Factor Assessment Total Risk Factor Score: 3 Thrombosis Risk Factor Assessment Level: Moderate Risk Assessment and Plan Assessment: Acute CHF exacerbation, systolic dysfunction, EF 35%, new onset. New onset cardiomyopathy Elevated troponins, abnormal EKG Moderate aortic stenosis CAD, history of stenting Hypertension Hyperlipidemia Alcohol abuse, daily use, greater than 15/week. Plan: Continue on current medication regime ,monitoring and symptomatic treatment. CIWA protocol initiated. Echo completed reporting reduced EF 35%, moderate mitral regurgitation, moderate aortic stenosis with a mean gradient of 25 mmHg, no pericardial effusion, no pulmonary hypertension. Maintain IV push diuretics, close monitoring of renal function. Cardiac catheterization scheduled for Saturday. The impression and plan of care has been dictated as directed. : I performed a history and examination of this patient, discussed the same with the dictator. I agree with the dictator's note ,documented as a scribe. Any additional findings or plans will be noted.
[2023-02-22] MEDS: MULTIVITAMINS, THERA 1 EACH TAB PO SCH (12:41)
[2023-02-22] MEDS: FOLIC ACID 1 MG TAB PO SCH (12:41)
[2023-02-23] MEDS: ENOXAPARIN 40 MG/0.4 ML SYRINGE SQ SCH (07:40)
[2023-02-23] MEDS: FUROSEMIDE 10 MG/ML 4 ML VIAL IV SCH ×2 (07:40→20:36)
[2023-02-23] MEDS: DOXAZOSIN 4 MG TAB PO SCH (07:40)
[2023-02-23] MEDS: MULTIVITAMINS, THERA 1 EACH TAB PO SCH (07:41)
[2023-02-23] MEDS: FINASTERIDE 5 MG TAB PO SCH (07:41)
[2023-02-23] MEDS: METOPROLOL SUCCINATE (ER) 25 MG TAB.ER.24H PO SCH (07:41)
[2023-02-23] MEDS: THIAMINE 100 MG TAB PO SCH (07:41)
[2023-02-23] MEDS: BRIMONIDINE TARTRATE 0.2% DROPS 5 ML BTL BOTH EYES SCH ×2 (07:41→20:36)
[2023-02-23] MEDS: ASPIRIN 81 MG PO SCH (07:41)
[2023-02-23] MEDS: ATORVASTATIN 40 MG TAB PO SCH (07:41)
[2023-02-23] MEDS: FOLIC ACID 1 MG TAB PO SCH (07:41)
[2023-02-23] MEDS: TIMOLOL 0.5% OPHTH DROPS 5 ML BTL BOTH EYES SCH ×2 (07:41→20:36)
[2023-02-23] MEDS: NON FORMULARY DRUG (Tadalafil [Cialis] 5 MG Tablet) PO SCH (07:45)
[2023-02-23 09:16] LABS: African American GFR (CKD) >90 (>60 ml/min/1.73 sqM); Anion Gap 10 mmol/L; Blood Urea Nitrogen 17 mg/dL (9-20); Carbon Dioxide 31 mmol/L (22-30); Chloride 102 mmol/L (98-107); Glucose 237 mg/dL (74-99); Non-African American GFR(CKD) >90 (>60 ml/min/1.73 sqM); Sodium 143 mmol/L (137-145)
--- NOTE | 2023-02-23 10:15 | P.PN ---
Subjective HISTORY OF PRESENT ILLNESS: This is a 72-year-old male with a past medical history significant for coronary artery disease with previous stenting of the mid LAD, aortic stenosis, hypertension, and hyperlipidemia. Patient follows in the office with Dr. Monet. We have been asked to see the patient in consultation for congestive heart failure. Patient examined at the bedside. Patient presented to the hospital for chief complaint of shortness of breath. He states his shortness of breath started about a month ago and has been progressively getting worse. He states when he cut the grass, he had to stop to take frequent rest which he has not had to do previously. He denies any chest pain or pressure. He denied any swelling in his lower extremities. He does report a tennis 15 pound weight gain over the past 2 months. He denies a history of congestive heart failure. * EKG reveals sinus mechanism with T-wave inversions laterally, appear new compared to old EKG. * Chest xray marked pulmonary edema * Laboratory data: W BC 9.4. Hemoglobin 11.2. Platelet count 300. Sodium 143. Potassium 4.3. BUN 17. Creatinine 0.70. Troponin 0.694. 0.832. ProBNP 5150. * Current home cardiac medications include aspirin 81 mg daily, lisinopril 10 mg daily, Lipitor 40 mg daily * Echocardiogram completed this admission reveals ejection fraction 35-40%, moderate MR, trace TR, moderate aortic stenosis with a mean gradient of 25 mmHg, moderate mitral regurgitation * Echocardiogram performed in the April 2022 revealed normal EF, moderate , mild MR, mild TR * Cardiac catheterization history: January 2021 with stenting to the mid LAD 02/23/2023 Patient examined this morning at the bedside. Patient denies chest pain or pressure. He reports improvement in his shortness of breath. He remains on IV Lasix. Vital signs are stable. PHYSICAL EXAM: VITAL SIGNS: Reviewed. GENERAL: Well-developed in no acute distress. HEENT: Head is normocephalic. Pupils are equal, round. Sclerae anicteric. Mucous membranes of the mouth are moist. Neck supple. No JVD or thyromegaly LUNGS: Respirations even and unlabored. Lungs diminished bilaterally HEART: Regular rate and rhythm. Systolic murmur noted. No S2 auscultated. ABDOMEN: Soft. Nondistended. Nontender. EXTREMITIES: Normal range of motion. No clubbing or cyanosis. Peripheral pulses intact. No lower extremity edema NEUROLOGIC: Awake and alert. Oriented x 3. 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% Valvular heart disease including moderate aortic stenosis and moderate mitral regurgitation Coronary artery disease with previous stenting of the LAD, 2020 Hypertension Hyperlipidemia PLAN: Continue current cardiac medications Continue Lasix 40 mg IV every 12 hours. Anticipate transition to oral diuretics tomorrow Daily weights, accurate I&O, and monitor kidney function Increase metoprolol succinate to 50 mg daily Resume home dose of lisinopril 10 mg daily Optimize heart failure and then recommend cardiac catheterization to be performed secondary to new onset cardiomyopathy We'll tentatively plan for cardiac catheterization on Saturday with Dr. Monet pending patient's progress. Patient is agreeable. Further recommendations pending patient's course Nurse practitioner note has been reviewed by physician. Signing provider agrees with the documented findings, assessment, and plan of care. Objective - Vital Signs Vital signs: Vital Signs Temp 98.4 F 02/23/23 08:00 Pulse 104 H 02/23/23 08:00 Resp 18 02/23/23 08:00 BP 146/80 02/23/23 08:00 Pulse Ox 97 02/23/23 08:28 FiO2 Intake & Output 02/22/23 02/23/23 02/23/23 18:59 06:59 18:59 Intake Total 600 600 Output Total 650 1700 1225 Balance -50 -1700 -625 Weight 114.7 kg Intake: Oral 600 600 Output: Urine 650 1700 1225 Other: Voiding Method Toilet Toilet Toilet Urinal # Voids 1 - Labs CBC & Chem 7: 02/21/23 20:36 02/23/23 08:18 Labs: Abnormal Lab Results - Last 24 Hours (Table) 02/23/23 Range/Units 08:18 Carbon Dioxide 31 H (22-30) mmol/L Glucose 237 H (74-99) mg/dL
[2023-02-23] MEDS: lisinopriL 10 MG TAB PO SCH (10:53)
--- NOTE | 2023-02-23 13:12 | P.PN ---
Subjective Progress Note Date: 02/23/23 * 72-year-old gentleman with past medical history significant for CAD, stent placement and reports normal stress test approximately 1 year ago , hyperlipidemia, osteoarthritis, prostate disorder, and daily alcohol use- drinks beer greater than 14 per week presented to the ER with worsening shortness of breath accompanied by waking. Patient reports approximately one month ago while mowing his grass developed shortness of breath-. Required him to stop and take a break. Weight gain of 10-15 pounds over the last couple months. EKG reported sinus rhythm, septal myocardial infarction of indeterminate age, moderate abnormal lateral T waves, troponins 0.694, 0.832. ProBNP 5150 .Afebrile, normal WBC, hemoglobin 9.2, platelets 300. INR 1. Electrolytes within normal limits, renal function stable. * 02/23: Patient seen and evaluated bedside, followed by cardiology as well, serum chemistry reviewed renal profile within normal limits troponin remained flat, denies chest pain patient states his breathing and swelling has improved Objective - Vital Signs Vital signs: Vital Signs Temp 98.1 F 02/23/23 11:16 Pulse 81 02/23/23 11:16 Resp 16 02/23/23 11:16 BP 108/66 02/23/23 11:16 Pulse Ox 96 02/23/23 11:16 FiO2 Intake & Output 02/22/23 02/23/23 02/23/23 18:59 06:59 18:59 Intake Total 600 1560 Output Total 650 1700 1450 Balance -50 -1700 110 Weight 114.7 kg Intake: Oral 600 1560 Output: Urine 650 1700 1450 Other: Voiding Method Toilet Toilet Toilet Urinal # Voids 1 - Exam PHYSICAL EXAMINATION: GENERAL: The patient is alert and oriented x3, not in any acute distress. Well developed, well nourished. HEENT: Pupils are round and equally reacting to light. EOMI. No scleral icterus. No conjunctival pallor. Normocephalic, atraumatic. No pharyngeal erythema. No thyromegaly. CARDIOVASCULAR: S1 and S2 present. Lower extremity edema noted PULMONARY: She is breath sounds bilaterally ABDOMEN: Soft, nontender, nondistended, normoactive bowel sounds. No palpable organomegaly. MUSCULOSKELETAL: No joint swelling or deformity. EXTREMITIES: No cyanosis, clubbing, or pedal edema. NEUROLOGICAL: Gross neurological examination did not reveal any focal deficits. - Labs CBC & Chem 7: 02/21/23 20:36 02/23/23 08:18 Labs: Abnormal Lab Results - Last 24 Hours (Table) 02/23/23 Range/Units 08:18 Carbon Dioxide 31 H (22-30) mmol/L Glucose 237 H (74-99) mg/dL Assessment and Plan Assessment: Assessment and plan * Acute onset congestive heart failure systolic dysfunction ejection fraction 35% * Valvular heart disease with mitral regurgitation and aortic stenosis * Ischemic cardiomyopathy with history of coronary artery disease PCI LAD 2020 * Hypertension * Hyperlipidemia * Alcohol use * In regards to congestive heart failure, patient followed by cardiology, continue patient on Lasix, monitor intake and output and daily weight. Continue metoprolol, lisinopril, Lasix. Carotid and admitted to medical therapy * In regards to history of coronary artery disease cardiology following and planning cardiac catheterization during this hospitalization * In regards to history of hypertension continue patient on lisinopril, metoprolol * Regards to history of alcohol use continue patient on alcohol withdrawal protocol
[2023-02-24] MEDS: ASPIRIN 81 MG PO SCH (07:39)
[2023-02-24] MEDS: METOPROLOL SUCCINATE (ER) 50 MG TAB.ER.24H PO SCH (07:39)
[2023-02-24] MEDS: ATORVASTATIN 40 MG TAB PO SCH (07:39)
[2023-02-24] MEDS: FOLIC ACID 1 MG TAB PO SCH (07:39)
[2023-02-24] MEDS: THIAMINE 100 MG TAB PO SCH (07:39)
[2023-02-24] MEDS: MULTIVITAMINS, THERA 1 EACH TAB PO SCH (07:39)
[2023-02-24] MEDS: lisinopriL 10 MG TAB PO SCH (07:39)
[2023-02-24] MEDS: DOXAZOSIN 4 MG TAB PO SCH (07:40)
[2023-02-24] MEDS: FUROSEMIDE 10 MG/ML 4 ML VIAL IV SCH (07:40)
[2023-02-24] MEDS: ENOXAPARIN 40 MG/0.4 ML SYRINGE SQ SCH (07:40)
[2023-02-24] MEDS: TIMOLOL 0.5% OPHTH DROPS 5 ML BTL BOTH EYES SCH ×2 (07:40→20:55)
[2023-02-24] MEDS: FINASTERIDE 5 MG TAB PO SCH (07:40)
[2023-02-24] MEDS: BRIMONIDINE TARTRATE 0.2% DROPS 5 ML BTL BOTH EYES SCH ×2 (07:40→20:55)
[2023-02-24] MEDS: NON FORMULARY DRUG (Tadalafil [Cialis] 5 MG Tablet) PO SCH (07:41)
[2023-02-24 10:04] LABS: HCT 35.5 % (39.0-53.0); HGB 11.7 gm/dL (13.0-17.5); MCH 30.6 pg (25.0-35.0); MCHC 32.9 g/dL (31.0-37.0); MCV 93.2 fL (80.0-100.0); Mean Platelet Volume 7.6; Platelet Count 346 k/uL (150-450); RBC 3.81 m/uL (4.30-5.90); RDW 12.9 % (11.5-15.5); WBC 8.2 k/uL (3.8-10.6)
[2023-02-24 10:18] LABS: African American GFR (CKD) >90 (>60 ml/min/1.73 sqM); Anion Gap 8 mmol/L; Blood Urea Nitrogen 16 mg/dL (9-20); Carbon Dioxide 34 mmol/L (22-30); Chloride 101 mmol/L (98-107); Glucose 115 mg/dL (74-99); Non-African American GFR(CKD) >90 (>60 ml/min/1.73 sqM); Potassium 3.8 mmol/L (3.5-5.1); Sodium 143 mmol/L (137-145)
[2023-02-24] MEDS ORDERED: NITROGLYCERIN SL TABS 0.4 MG TAB SUBLINGUAL PRN (11:48)
[2023-02-24] MEDS ORDERED: ALPRAZolam 0.25 MG TAB PO PRN (11:48)
[2023-02-24] MEDS ORDERED: ALPRAZolam 0.5 MG TAB PO PRN (11:48)
--- NOTE | 2023-02-24 11:50 | P.PN ---
Subjective HISTORY OF PRESENT ILLNESS: This is a 72-year-old male with a past medical history significant for coronary artery disease with previous stenting of the mid LAD, aortic stenosis, hypertension, and hyperlipidemia. Patient follows in the office with Dr. Monet. We have been asked to see the patient in consultation for congestive heart failure. Patient examined at the bedside. Patient presented to the hospital for chief complaint of shortness of breath. He states his shortness of breath started about a month ago and has been progressively getting worse. He states when he cut the grass, he had to stop to take frequent rest which he has not had to do previously. He denies any chest pain or pressure. He denied any swelling in his lower extremities. He does report a tennis 15 pound weight gain over the past 2 months. He denies a history of congestive heart failure. * EKG reveals sinus mechanism with T-wave inversions laterally, appear new compared to old EKG. * Chest xray marked pulmonary edema * Laboratory data: W BC 9.4. Hemoglobin 11.2. Platelet count 300. Sodium 143. Potassium 4.3. BUN 17. Creatinine 0.70. Troponin 0.694. 0.832. ProBNP 5150. * Current home cardiac medications include aspirin 81 mg daily, lisinopril 10 mg daily, Lipitor 40 mg daily * Echocardiogram completed this admission reveals ejection fraction 35-40%, moderate MR, trace TR, moderate aortic stenosis with a mean gradient of 25 mmHg, moderate mitral regurgitation * Echocardiogram performed in the April 2022 revealed normal EF, moderate , mild MR, mild TR * Cardiac catheterization history: January 2021 with stenting to the mid LAD 02/23/2023 Patient examined this morning at the bedside. Patient denies chest pain or pressure. He reports improvement in his shortness of breath. He remains on IV Lasix. Vital signs are stable. 02/24/2023 Patient examined this point. Patient is sitting up in the chair. He denies any chest pain or pressure. He denies any shortness of breath. Vital signs are stable. He remains on IV Lasix. PHYSICAL EXAM: VITAL SIGNS: Reviewed. GENERAL: Well-developed in no acute distress. HEENT: Head is normocephalic. Pupils are equal, round. Sclerae anicteric. Mucous membranes of the mouth are moist. Neck supple. No JVD or thyromegaly LUNGS: Respirations even and unlabored. Lungs clear bilaterally HEART: Regular rate and rhythm. Systolic murmur noted. No S2 auscultated. ABDOMEN: Soft. Nondistended. Nontender. EXTREMITIES: Normal range of motion. No clubbing or cyanosis. Peripheral pulses intact. No lower extremity edema NEUROLOGIC: Awake and alert. Oriented x 3. 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% Valvular heart disease including moderate aortic stenosis and moderate mitral regurgitation Coronary artery disease with previous stenting of the LAD, 2020 Hypertension Hyperlipidemia PLAN: Continue current cardiac medications Discontinue IV Lasix. Begin oral Lasix 40 mg daily NPO at midnight Patient to undergo cardiac catheterization tomorrow with Dr. Monet Further recommendations pending patient's course Nurse practitioner note has been reviewed by physician. Signing provider agrees with the documented findings, assessment, and plan of care. Objective - Vital Signs Vital signs: Vital Signs Temp 97.7 F 02/24/23 11:19 Pulse 81 02/24/23 11:19 Resp 16 02/24/23 11:19 BP 108/69 02/24/23 11:19 Pulse Ox 94 L 02/24/23 11:19 FiO2 21 02/24/23 08:20 Intake & Output 02/23/23 02/24/23 02/24/23 18:59 06:59 18:59 Intake Total 2180 960 Output Total 1850 1800 1650 Balance 330 -1800 -690 Weight 113.6 kg Intake: Oral 2180 960 Output: Urine 1850 1800 1650 Other: Voiding Method Toilet Toilet Toilet Urinal Urinal Urinal # Voids 1 - Labs CBC & Chem 7: 02/24/23 09:52 02/24/23 09:52 Labs: Abnormal Lab Results - Last 24 Hours (Table) 02/24/23 02/24/23 Range/Units 09:52 09:52 RBC 3.81 L (4.30-5.90) m/uL Hgb 11.7 L (13.0-17.5) gm/dL Hct 35.5 L (39.0-53.0) % Carbon Dioxide 34 H (22-30) mmol/L Glucose 115 H (74-99) mg/dL
--- NOTE | 2023-02-24 12:40 | P.PN ---
Subjective Progress Note Date: 02/24/23 * 72-year-old gentleman with past medical history significant for CAD, stent placement and reports normal stress test approximately 1 year ago , hyperlipidemia, osteoarthritis, prostate disorder, and daily alcohol use- drinks beer greater than 14 per week presented to the ER with worsening shortness of breath accompanied by waking. Patient reports approximately one month ago while mowing his grass developed shortness of breath-. Required him to stop and take a break. Weight gain of 10-15 pounds over the last couple months. EKG reported sinus rhythm, septal myocardial infarction of indeterminate age, moderate abnormal lateral T waves, troponins 0.694, 0.832. ProBNP 5150 .Afebrile, normal WBC, hemoglobin 9.2, platelets 300. INR 1. Electrolytes within normal limits, renal function stable. * 02/23: Patient seen and evaluated bedside, followed by cardiology as well, serum chemistry reviewed renal profile within normal limits troponin remained flat, denies chest pain patient states his breathing and swelling has improved * 02/24: Patient seen and evaluated bedside, patient remains on room air breathing well denies of any issues planned for cardiac catheterization tomorrow hematology and serum chemistry reviewed, electrolytes within normal limits Objective - Vital Signs Vital signs: Vital Signs Temp 97.7 F 02/24/23 11:19 Pulse 81 02/24/23 11:19 Resp 16 02/24/23 11:19 BP 108/69 02/24/23 11:19 Pulse Ox 94 L 02/24/23 11:19 FiO2 21 02/24/23 08:20 Intake & Output 02/23/23 02/24/23 02/24/23 18:59 06:59 18:59 Intake Total 2180 960 Output Total 1850 1800 1650 Balance 330 -1800 -690 Weight 113.6 kg Intake: Oral 2180 960 Output: Urine 1850 1800 1650 Other: Voiding Method Toilet Toilet Toilet Urinal Urinal Urinal # Voids 1 - Exam PHYSICAL EXAMINATION: GENERAL: The patient is alert and oriented x3, not in any acute distress. Well developed, well nourished. HEENT: Pupils are round and equally reacting to light. EOMI. No scleral icterus. No conjunctival pallor. Normocephalic, atraumatic. No pharyngeal erythema. No thyromegaly. CARDIOVASCULAR: S1 and S2 present. Lower extremity edema noted PULMONARY: She is breath sounds bilaterally ABDOMEN: Soft, nontender, nondistended, normoactive bowel sounds. No palpable organomegaly. MUSCULOSKELETAL: No joint swelling or deformity. EXTREMITIES: No cyanosis, clubbing, or pedal edema. NEUROLOGICAL: Gross neurological examination did not reveal any focal deficits. - Labs CBC & Chem 7: 02/24/23 09:52 02/24/23 09:52 Labs: Abnormal Lab Results - Last 24 Hours (Table) 02/24/23 02/24/23 Range/Units 09:52 09:52 RBC 3.81 L (4.30-5.90) m/uL Hgb 11.7 L (13.0-17.5) gm/dL Hct 35.5 L (39.0-53.0) % Carbon Dioxide 34 H (22-30) mmol/L Glucose 115 H (74-99) mg/dL Assessment and Plan Assessment: Assessment and plan * Acute onset congestive heart failure systolic dysfunction ejection fraction 35% * Valvular heart disease with mitral regurgitation and aortic stenosis * Ischemic cardiomyopathy with history of coronary artery disease PCI LAD 2020 * Hypertension * Hyperlipidemia * Alcohol use * In regards to congestive heart failure, patient followed by cardiology, continue patient on Lasix, monitor intake and output and daily weight. Continue metoprolol, lisinopril, Lasix. Carotid and admitted to medical therapy * In regards to history of coronary artery disease cardiology following and planning cardiac catheterization during this hospitalization, scheduled for 02/25 * In regards to history of hypertension continue patient on lisinopril, metopr olol * Regards to history of alcohol use continue patient on alcohol withdrawal protocol
[2023-02-24] MEDS: SODIUM CHLORIDE 0.9% 1,000 ML in EMPTY BAG 1 BAG IV SCH (23:30)
[2023-02-25] MEDS: lisinopriL 10 MG TAB PO SCH (04:29)
[2023-02-25] MEDS: THIAMINE 100 MG TAB PO SCH (04:29)
[2023-02-25] MEDS: METOPROLOL SUCCINATE (ER) 50 MG TAB.ER.24H PO SCH (04:29)
[2023-02-25] MEDS: FOLIC ACID 1 MG TAB PO SCH (04:29)
[2023-02-25] MEDS: MULTIVITAMINS, THERA 1 EACH TAB PO SCH (04:29)
[2023-02-25] MEDS: DOXAZOSIN 4 MG TAB PO SCH (04:30)
[2023-02-25] MEDS: FINASTERIDE 5 MG TAB PO SCH (04:30)
[2023-02-25] MEDS: ENOXAPARIN 40 MG/0.4 ML SYRINGE SQ SCH (04:30)
[2023-02-25] MEDS: BRIMONIDINE TARTRATE 0.2% DROPS 5 ML BTL BOTH EYES SCH ×2 (04:31→20:25)
[2023-02-25] MEDS: TIMOLOL 0.5% OPHTH DROPS 5 ML BTL BOTH EYES SCH ×2 (04:35→20:25)
[2023-02-25] MEDS: FUROSEMIDE 40 MG TAB PO SCH (04:36)
[2023-02-25] MEDS: NON FORMULARY DRUG (Tadalafil [Cialis] 5 MG Tablet) PO SCH (04:36)
[2023-02-25] MEDS ORDERED: ATORVASTATIN 80 MG TAB PO ONE (05:00)
[2023-02-25] MEDS ORDERED: ASPIRIN 325 MG TAB PO ONE (05:00)
[2023-02-25 06:36] LABS: Glucose,Whole Blood 111 mg/dL (70-110)
[2023-02-25] MEDS ORDERED: HEPARIN SODIUM,PORCINE (1 ML) 2,500 UNIT in SODIUM CHLORIDE 0.9% 250 ML IRRIGATION PRN (07:00)
[2023-02-25] MEDS ORDERED: HEPARIN SODIUM,PORCINE 10,000 UNIT in SODIUM CHLORIDE 0.9% 1,000 ML IRRIGATION PRN (07:00)
[2023-02-25 08:52] LABS: HCT 32.6 % (39.0-53.0); HGB 10.7 gm/dL (13.0-17.5); MCH 30.8 pg (25.0-35.0); MCHC 32.9 g/dL (31.0-37.0); MCV 93.7 fL (80.0-100.0); Mean Platelet Volume 7.5; Platelet Count 311 k/uL (150-450); RBC 3.48 m/uL (4.30-5.90); RDW 12.8 % (11.5-15.5); WBC 8.7 k/uL (3.8-10.6)
[2023-02-25] MEDS ORDERED: NON FORMULARY DRUG (Ergocalciferol 50,000 UNIT Cap) PO SCH (09:00)
[2023-02-25 09:18] LABS: African American GFR (CKD) >90 (>60 ml/min/1.73 sqM); Anion Gap 5 mmol/L; Blood Urea Nitrogen 14 mg/dL (9-20); Calcium 8.7 mg/dL (8.4-10.2); Carbon Dioxide 29 mmol/L (22-30); Chloride 106 mmol/L (98-107); Glucose 103 mg/dL (74-99); Non-African American GFR(CKD) >90 (>60 ml/min/1.73 sqM); Potassium 3.9 mmol/L (3.5-5.1); Sodium 140 mmol/L (137-145)
--- NOTE | 2023-02-25 11:07 | P.PN ---
Subjective Progress Note Date: 02/25/23 H&P Date: 02/22/23 Chief Complaint: Dyspnea This is a 72-year-old gentleman with past medical history significant for CAD, stent placement and reports normal stress test approximately 1 year ago , hyperlipidemia, osteoarthritis, prostate disorder, and daily alcohol use-drinks beer greater than 14 per week presented to the ER with worsening shortness of br eath accompanied by waking. Patient reports approximately one month ago while mowing his grass developed shortness of breath-. Required him to stop and take a break. Weight gain of 10-15 pounds over the last couple months. Minimal exertional shortness of breath continued to worsen with minimal lower extremity edema. Denies chest pain, palpitations. Chest x-ray reporting marked pulmonary edema. EKG reported sinus rhythm, septal myocardial infarction of indeterminate age, moderate abnormal lateral T waves, troponins 0.694, 0.832. ProBNP 5150 .Afebrile, normal WBC, hemoglobin 9.2, platelets 300. INR 1. Electrolytes within normal limits, renal function stable. Evaluated by cardiology, diuretics initiated, echo ordered. This morning breathing easier, maintaining O2 sats in the mid 90s on room air. Denies chest pain, palpitations. Echo completed reporting reduced EF 35%, moderate mitral regurgitation, moderate aortic stenosis with a mean gradient of 25 mmHg, no pericardial effusion, no pulmonary hypertension. 02/25/2023 diuresed well on Lasix IV push and transitioned to oral. No ankle edema. Denies chest pain, palpitations or shortness of breath. Maintaining O2 sats in the mid to high 90s on room air. Scheduled for cardiac catheterization today. Renal function stable. Objective - Vital Signs Vital signs: Vital Signs Temp 98.2 F 02/25/23 08:00 Pulse 88 02/25/23 08:00 Resp 16 02/25/23 08:00 BP 126/61 02/25/23 08:00 Pulse Ox 94 L 02/25/23 08:45 FiO2 21 02/24/23 08:20 Intake & Output 02/24/23 02/25/23 02/25/23 18:59 06:59 18:59 Intake Total 1678 Output Total 1775 Balance -97 Intake: Oral 1678 Output: Urine 1775 Other: Voiding Method Toilet Toilet Toilet Urinal Urinal Urinal - Exam PHYSICAL EXAM: VITAL SIGNS: As above GENERAL: Alert and oriented 3, Sitting up in bed, no acute distress HEENT: Normocephalic Conjunctivae normal. eyes normal. NECK: Supple, No JVD. CARDIOVASCULAR: S1, S2 regular. Systolic murmur RESPIRATION: Unlabored, equal air entry, CTA. ABDOMEN: Soft, nondistended, nontender . No guarding. +BS. LEGS: no edema. no calf tenderness, positive DP pulses. NERVOUS SYSTEM: Cranial N 2-12 grossly normal. No focal deficits. Strength and sensation grossly intact. Skin: Warm and dry, no rash - Labs CBC & Chem 7: 02/25/23 08:27 02/25/23 08:27 Labs: Abnormal Lab Results - Last 24 Hours (Table) 02/25/23 02/25/23 02/25/23 Range/Units 06:29 08:27 08:27 RBC 3.48 L (4.30-5.90) m/uL Hgb 10.7 L (13.0-17.5) gm/dL Hct 32.6 L (39.0-53.0) % Creatinine 0.60 L (0.66-1.25) mg/dL Glucose 103 H (74-99) mg/dL POC Glucose (mg/dL) 111 H (70-110) mg/dL Assessment and Plan Assessment: Acute CHF exacerbation, systolic dysfunction, EF 35%, new onset. Valvular heart disease including moderate aortic stenosis New onset cardiomyopathy Elevated troponins, abnormal EKG CAD, history of stenting Hypertension Hyperlipidemia Alcohol abuse, daily use, greater than 15/week.[facility] protocol. Plan: Continue on current medication regime ,monitoring and symptomatic treatment.diuretics transitioned to oral as per cardiology .Cardiac catheterization scheduled for today. Close monitoring of renal function, elia ctrolytes with repeat labs ordered for a.m. The impression and plan of care has been dictated as directed. : I performed a history and examination of this patient, discussed the same with the dictator. I agree with the dictator's note ,documented as a scribe. Any additional findings or plans will be noted.
[2023-02-25] MEDS ORDERED: LIDOCAINE 1% INJ 10MG/ML (20 ML MDV) ONE (12:18)
[2023-02-25] MEDS ORDERED: VERAPAMIL 2.5 MG/ML 2 ML AMP ONE (12:18)
[2023-02-25] MEDS ORDERED: HEPARIN SODIUM 1,000 UN/ML (10ML VL) ONE ×2 (12:32→13:29)
[2023-02-25] MEDS ORDERED: fentaNYL (PF) 50 MCG/ML 2 ML AMP ONE (12:32)
[2023-02-25] MEDS ORDERED: fentaNYL (PF) 50 MCG/ML 2 ML AMP IVP ONE (12:51)
[2023-02-25] MEDS ORDERED: IV FLUID CONTINUATION 1,000 ML IV ONE (12:51)
[2023-02-25] MEDS ORDERED: LIDOCAINE 1% INJ 10MG/ML (20 ML MDV) SQ ONE (12:55)
[2023-02-25] MEDS ORDERED: VERAPAMIL SYRINGE (5 MG/10 ML) INTRAARTER ONE (12:57)
[2023-02-25] MEDS: HEPARIN SODIUM 1,000 UN/ML (10ML VL) IV ONE ×3 (13:01→13:19)
[2023-02-25] MEDS ORDERED: CLOPIDOGREL 75 MG TAB ONE (13:09)
[2023-02-25] MEDS ORDERED: CLOPIDOGREL 75 MG TAB PO ONE (13:13)
[2023-02-25] MEDS ORDERED: NITROGLYCERIN 1000MCG/10ML SYRINGE INTRACORON ONE (13:18)
[2023-02-25] MEDS ORDERED: IOPAMIDOL-370 100ML BTL INJ ONE ×2 (13:22→13:42)
[2023-02-25] MEDS ORDERED: HEPARIN SODIUM 1,000 UN/ML (10ML VL) IV ONE (13:30)
[2023-02-25] MEDS ORDERED: MAG HYDROX/AL HYDROX/SIMETH 30 ML CUP PO PRN (13:51)
[2023-02-25] MEDS ORDERED: ZOLPIDEM 5 MG TAB PO PRN (13:51)
[2023-02-25] MEDS ORDERED: NITROGLYCERIN SL TABS 0.4 MG TAB SUBLINGUAL PRN (13:51)
[2023-02-25] MEDS ORDERED: ATROPINE SULFATE 0.1 MG/ML 10ML SYRINGE IV PRN (13:51)
[2023-02-25] MEDS ORDERED: RX INFO: IV CONTRAST WAS GIVEN 1 EACH MISC MISCELLANE PRN (13:51)
[2023-02-25] MEDS ORDERED: SODIUM CHLORIDE 0.9% 1,000 ML in EMPTY BAG 1 BAG IV SCH (14:00)
--- NOTE | 2023-02-25 14:02 | P.CARDCATH ---
Date of Procedure: 02/25/23 Description of Procedure: Cardiac Catheterization: The patient is a 72-year-old male with a known history of CAD status post stenting in 2020, history of hypertension and hyperlipidemia who presented with symptoms of dyspnea, signs of heart failure with mild troponin elevation. He was found to have decrease in his ejection fraction. Recommendations were made regarding cardiac catheterization, the risks and the complications were discussed with the patient who is in full understanding and agreement. Procedure Description: Patient was brought to chemical processing laborer in fasting semi-sedated state after receiving Fentanyl and Benadryl achieiving moderate conscious sedated state. Using Xylocaine Anesthesia and modified Seldinger technique, a 6-Chadian sheath was introduced in the right radial artery . Subsequently, selective coronary angiography was performed using a 5-Chadian 3.5 bend Aida catheter. Multiple views of the coronary artery including hemiaxial views were obtained. The right Aida catheter was used to cross the aortic valve and LVEDP was calculated. PCI: After removing the catheters a 6-Chadian CLS 3.5 guiding catheter and the left main was cannulated. Following that 0.014 BMW J-wire was positioned in the distal LAD. A 2.5X12 mm NC Treck was advanced and inflation to 10 emily was done. After removing the balloon a CallFireo lummi eye IVUS was advanced but could not cross the mid segment. Images were obtained and reveal significant calcification. Subsequently a 6-Chadian guide liner was introduced and with the help of the guide liner at 2.5 x 15 m Xience jonny point stent was advanced and deployed at 16 emily. After moving the balloon attempted to advanced the intravascular ultrasound catheter were unsuccessful because of severe calcification proximally. At that point the wire was withdrawn and images were obtained and revealed successful stenting. Following that, catheter and sheath were removed. Hemostasis was obtained with deployment of vascular band . There was no immediate complication. Patient was returned to room in stable condition. Of note, the patient received a total of 14,000 units of intravenous heparin as well as intra-arterial verapamil. He received an oral loading dose of clopidogrel. He had chest discomfort that resolved but no significant EKG ch anges. Findings: Fluoroscopy: There is severe calcification involving the LAD proximally Left main: This is a large size vessel, calcified bifurcating into LAD and left circumflex. The distal left main has 10-20% plaque, there is a vessel has no high-grade stenosis LAD: This is a large size vessel, giving rise to 2 diagonal branch the proximal LAD has a 50% plaque tubular. After the takeoff of the second diagonal branch at the takeoff of the first septal kindergarten tutor there is an eccentric 90% lesion proximal to the prior stent the rest of the vessel has no high-grade stenosis Left circumflex: This is a nondominant vessel large in caliber, giving rise to obtuse marginal branch. The proximal left circumflex has a 30-40% plaque progress of the vessel has diffuse intimal disease with no high-grade stenosis RCA: This is a large dominant vessel, bifurcating into PDA and PLV. The right coronary artery has diffuse intimal disease of 20-30% with no high-grade stenosis Left Ventriculogram: Not performed Hemodynamics: There was a 20 mm gradient across the aortic valve, LVEDP was 22- 26 mmHg Conclusion: 1. Calcified proximal LAD 2. Severe stenosis in the proximal LAD 3. Mild to moderate disease in the left circumflex with mild disease in the RCA 4. Successful stenting the proximal LAD with reduction of stenosis from 90% to less than 5% Recommendations: The patient will continue on aspirin and clopidogrel for 1 year without interruption. He will continue on statin with the cool of reaching an LDL below 70 mg/dL in addition to aggressive coronary risks modification. Close follow-up of his left ventricle systolic function and aortic valve will be continued.. The findings and the recommendations were discussed with the patient and the family and they were in full understanding and agreement. Duration of sedation is 49 minutes.
--- NOTE | 2023-02-25 14:51 | P.PN ---
Subjective Progress Note Date: 02/25/23 HISTORY OF PRESENT ILLNESS: This is a 72-year-old male with a past medical history significant for coronary artery disease with previous stenting of the mid LAD, aortic stenosis, hypertension, and hyperlipidemia. Patient follows in the office with Dr. Monet. We have been asked to see the patient in consultation for congestive heart failure. Patient examined at the bedside. Patient presented to the hospital for chief complaint of shortness of breath. He states his shortness of breath started about a month ago and has been progressively getting worse. He states when he cut the grass, he had to stop to take frequent rest which he has not had to do previously. He denies any chest pain or pressure. He denied any swelling in his lower extremities. He does report a tennis 15 pound weight gain over the past 2 months. He denies a history of congestive heart failure. * EKG reveals sinus mechanism with T-wave inversions laterally, appear new compared to old EKG. * Chest xray marked pulmonary edema * Laboratory data: W BC 9.4. Hemoglobin 11.2. Platelet count 300. Sodium 143. Potassium 4.3. BUN 17. Creatinine 0.70. Troponin 0.694. 0.832. ProBNP 5150. * Current home cardiac medications include aspirin 81 mg daily, lisinopril 10 mg daily, Lipitor 40 mg daily * Echocardiogram completed this admission reveals ejection fraction 35-40%, moderate MR, trace TR, moderate aortic stenosis with a mean gradient of 25 mmHg, moderate mitral regurgitation * Echocardiogram performed in the April 2022 revealed normal EF, moderate , mild MR, mild TR * Cardiac catheterization history: January 2021 with stenting to the mid LAD 02/23/2023 Patient examined this morning at the bedside. Patient denies chest pain or pressure. He reports improvement in his shortness of breath. He remains on IV Lasix. Vital signs are stable. 02/24/2023 Patient examined this point. Patient is sitting up in the chair. He denies any chest pain or pressure. He denies any shortness of breath. Vital signs are stable. He remains on IV Lasix. 02/25 Patient is seen today in follow up. He denies chest pain, no shortness of breath. Patient is scheduled for cardiac catheterization today with Dr. Monet. Blood pressure 117/60, heart rate in the 80s, pulse ox 95% on room air, afebrile. Hemoglobin 10.7, BUN 14 and creatinine 0.6. PHYSICAL EXAM: VITAL SIGNS: Reviewed. GENERAL: Well-developed in no acute distress. HEENT: Head is normocephalic. Pupils are equal, round. Sclerae anicteric. Mucous membranes of the mouth are moist. Neck supple. No JVD or thyromegaly LUNGS: Respirations even and unlabored. Lungs clear bilaterally HEART: Regular rate and rhythm. Systolic murmur noted. No S2 auscultated. ABDOMEN: Soft. Nondistended. Nontender. EXTREMITIES: Normal range of motion. No clubbing or cyanosis. Peripheral pulses intact. No lower extremity edema NEUROLOGIC: Awake and alert. Oriented x 3. 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% Valvular heart disease including moderate aortic stenosis and moderate mitral regurgitation Coronary artery disease with previous stenting of the LAD, 2020 Hypertension Hyperlipidemia PLAN: Continue current cardiac medications Continue oral Lasix 40 mg daily Patient to undergo cardiac catheterization today with Dr. Monet Further recommendations pending patient's course Nurse practitioner note has been reviewed by physician. Signing provider agrees with the documented findings, assessment, and plan of care. Objective - Vital Signs Vital signs: Vital Signs Temp 98.2 F 02/25/23 08:00 Pulse 88 02/25/23 08:00 Resp 16 02/25/23 08:00 BP 126/61 02/25/23 08:00 Pulse Ox 94 L 02/25/23 08:45 FiO2 21 02/24/23 08:20 Intake & Output 02/24/23 02/25/23 02/25/23 18:59 06:59 18:59 Intake Total 1678 Output Total 1775 Balance -97 Intake: Oral 1678 Output: Urine 1775 Other: Voiding Method Toilet Toilet Toilet Urinal Urinal Urinal - Labs CBC & Chem 7: 02/25/23 08:27 02/25/23 08:27 Labs: Abnormal Lab Results - Last 24 Hours (Table) 02/25/23 02/25/23 02/25/23 Range/Units 06:29 08:27 08:27 RBC 3.48 L (4.30-5.90) m/uL Hgb 10.7 L (13.0-17.5) gm/dL Hct 32.6 L (39.0-53.0) % Creatinine 0.60 L (0.66-1.25) mg/dL Glucose 103 H (74-99) mg/dL POC Glucose (mg/dL) 111 H (70-110) mg/dL
[2023-02-25] MEDS: SODIUM CHLORIDE 0.9% 1,000 ML in EMPTY BAG 1 BAG IV SCH ×2 (17:08→19:16)
[2023-02-26 08:11] VITALS: RESP 17
[2023-02-26] MEDS: MULTIVITAMINS, THERA 1 EACH TAB PO SCH (08:43)
[2023-02-26] MEDS: FINASTERIDE 5 MG TAB PO SCH (08:43)
[2023-02-26] MEDS: ENOXAPARIN 40 MG/0.4 ML SYRINGE SQ SCH (08:43)
[2023-02-26] MEDS: THIAMINE 100 MG TAB PO SCH (08:44)
[2023-02-26] MEDS: lisinopriL 10 MG TAB PO SCH (08:44)
[2023-02-26] MEDS: FOLIC ACID 1 MG TAB PO SCH (08:44)
[2023-02-26] MEDS: DOXAZOSIN 4 MG TAB PO SCH (08:44)
[2023-02-26] MEDS: FUROSEMIDE 40 MG TAB PO SCH (08:44)
[2023-02-26] MEDS: METOPROLOL SUCCINATE (ER) 50 MG TAB.ER.24H PO SCH (08:44)
[2023-02-26] MEDS: BRIMONIDINE TARTRATE 0.2% DROPS 5 ML BTL BOTH EYES SCH (08:46)
[2023-02-26] MEDS: TIMOLOL 0.5% OPHTH DROPS 5 ML BTL BOTH EYES SCH (08:46)
[2023-02-26] MEDS: SODIUM CHLORIDE 0.9% 1,000 ML in EMPTY BAG 1 BAG IV SCH (08:57)
[2023-02-26] MEDS ORDERED: DAPAGLIFLOZIN PROPANEDIOL 10 MG TABLET PO SCH (09:00)
[2023-02-26] MEDS ORDERED: CLOPIDOGREL 75 MG TAB PO SCH (09:00)
[2023-02-26] MEDS ORDERED: ATORVASTATIN 40 MG TAB PO SCH (09:00)
[2023-02-26] MEDS ORDERED: ASPIRIN 81 MG PO SCH (09:00)
[2023-02-26 10:19] LABS: African American GFR (CKD) >90 (>60 ml/min/1.73 sqM); Anion Gap 8 mmol/L; Blood Urea Nitrogen 10 mg/dL (9-20); Calcium 8.7 mg/dL (8.4-10.2); Carbon Dioxide 28 mmol/L (22-30); Chloride 104 mmol/L (98-107); Glucose 127 mg/dL (74-99); Non-African American GFR(CKD) >90 (>60 ml/min/1.73 sqM); Potassium 3.5 mmol/L (3.5-5.1); Sodium 140 mmol/L (137-145)
[2023-02-26] MEDS ORDERED: POTASSIUM CHLORIDE ER 20 MEQ TAB.ER PO STA ×2 (10:59→11:15)
[2023-02-26 11:25] VITALS: BMI 34.9
[2023-02-26 11:41] VITALS: BP 129/65; PULSE 74; TEMP 98.4
[2023-02-26 11:44] LABS: Glucose,Whole Blood 99 mg/dL (70-110)
--- NOTE | 2023-02-26 15:04 | P.DS ---
Providers Date of admission: 02/25/23 09:38 Expected date of discharge: 02/26/23 Attending physician: Jesús Chase MD Consults: 02/22/23 00:47 Consult Physician Routine Consulting Provider: Chadd Willett Consult Reason/Comments: CHF, Do you want consulting provider notified?: Yes 02/25/23 13:51 Consult Physician Routine Consulting Provider: [facility] Consult Reason/Comments: Post Interventional Patient Do you want consulting provider notified?: Already Contacted Primary care physician: Manuela Chase [facility] Course: Final diagnoses Acute CHF exacerbation, systolic dysfunction, EF 35%, new onset. Valvular heart disease including moderate aortic stenosis New onset cardiomyopathy.Status post cardiac catheterization reporting calcified proximal LAD, severe stenosis in the proximal LAD with successful stenting, mild to moderate disease in the left circumflex with mild disease in the RCA. Elevated troponins, abnormal EKG CAD, history of stenting Hypertension Hyperlipidemia Alcohol abuse, daily use, greater than 15/week.[facility] protocol. Hospital course:This is a 72-year-old gentleman with past medical history significant for CAD, stent placement and reports normal stress test approximately 1 year ago , hyperlipidemia, osteoarthritis, prostate disorder, and daily alcohol use-drinks beer greater than 14 per week presented to the ER with worsening shortness of breath accompanied by waking. Patient reports approximately one month ago while mowing his grass developed shortness of breath-. Required him to stop and take a break. Weight gain of 10-15 pounds over the last couple months. Minimal exertional shortness of breath continued to worsen with minimal lower extremity edema. Denies chest pain, palpitations. Chest x-ray reporting marked pulmonary edema. EKG reported sinus rhythm, septal myocardial infarction of indeterminate age, moderate abnormal lateral T waves, troponins 0.694, 0.832. ProBNP 5150 .Afebrile, normal WBC, hemoglobin 9.2, platelets 300. INR 1. Electrolytes within normal limits, renal function stable. Evaluated by cardiology, diuretics initiated, echo ordered. This morning breathing easier, maintaining O2 sats in the mid 90s on room air. Denies chest pain, palpitations. Echo completed reporting reduced EF 35%, moderate mitral regurgitation, moderate aortic stenosis with a mean gradient of 25 mmHg, no pericardial effusion, no pulmonary hypertension. 02/25/2023 diuresed well on Lasix IV push and transitioned to oral. No ankle edema. Denies chest pain, palpitations or shortness of breath. Maintaining O2 sats in the mid to high 90s on room air. Scheduled for cardiac catheterization today. Renal function stable. Status post cardiac catheterization reporting calcified proximal LAD, severe stenosis in the proximal LAD with successful stenting, mild to moderate disease in the left circumflex with mild disease in the RCA. Tolerated procedure well. Denies chest pain Patient will be discharged home today in a stable condition with guarded prognosis pending final DC recommendations and clearance per cardiology. [facility] requires prior auth.-in clinic The impression and plan of care has been dictated as directed. : I performed a history and examination of this patient, discussed the same with the dictator. I agree with the dictator's note ,documented as a scribe. Any additional findings or plans will be noted. Patient Condition at Discharge: Stable Plan - Discharge Summary New Discharge Prescriptions: New Dapagliflozin Propanediol [Farxiga] 10 mg PO DAILY #30 tab Furosemide [Lasix] 40 mg PO DAILY #30 tab Metoprolol Succinate (ER) [Toprol XL] 50 mg PO QAM #30 tab Potassium Chloride ER [K-Dur 20] 20 meq PO DAILY #30 tab Ergocalciferol 50,000 unit PO MO Folic Acid 1 mg PO DAILY tab Multivitamins, Thera [Multivitamin (formulary)] 1 each PO DAILY tab Clopidogrel [Plavix] 75 mg PO DAILY #30 tab Thiamine [Vitamin B-1] 100 mg PO DAILY tab Continue Timolol [Betimol 0.5% Ophth Soln] 1 drop BOTH EYES BID Terazosin HCl 10 mg PO BID Finasteride [Proscar] 5 mg PO DAILY Ergocalciferol [Vitamin D2 (1250 Mcg = 13933 Iu)] 1,250 mcg PO MO lisinopriL [Zestril] 10 mg PO DAILY Aspirin 81 mg PO DAILY #90 tab Atorvastatin [Lipitor] 40 mg PO DAILY Brimonidine Tartrate [Alphagan P 0.2% Ophth Soln] 1 drop BOTH EYES BID Discontinued Metoprolol Succinate (ER) [Toprol Xl] 25 mg PO QAM No Action tadalafiL [Cialis] 5 mg PO DAILY Discharge Medication List Finasteride [Proscar] 5 mg PO DAILY 05/22/18 [History] Terazosin HCl 10 mg PO BID 05/22/18 [History] Timolol [Betimol 0.5% Ophth Soln] 1 drop BOTH EYES BID 05/22/18 [History] tadalafiL [Cialis] 5 mg PO DAILY 11/30/20 [History] Aspirin 81 mg PO DAILY #90 tab 01/30/21 [Rx] Atorvastatin [Lipitor] 40 mg PO DAILY 08/03/21 [History] Brimonidine Tartrate [Alphagan P 0.2% Oph Soln] 1 drop BOTH EYES BID 02/22/23 [History] Ergocalciferol [Vitamin D2 (1250 Mcg = 67020 Iu)] 1,250 mcg PO MO 02/22/23 [Hist ory] lisinopriL [Zestril] 10 mg PO DAILY 02/22/23 [History] Clopidogrel [Plavix] 75 mg PO DAILY #30 tab 02/26/23 [Rx] Dapagliflozin Propanediol [Farxiga] 10 mg PO DAILY #30 tab 02/26/23 [Rx] Ergocalciferol 50,000 unit PO MO 02/26/23 [Rx] Folic Acid 1 mg PO DAILY tab 02/26/23 [Rx] Furosemide [Lasix] 40 mg PO DAILY #30 tab 02/26/23 [Rx] Metoprolol Succinate (ER) [Toprol XL] 50 mg PO QAM #30 tab 02/26/23 [Rx] Multivitamins, Thera [Multivitamin (formulary)] 1 each PO DAILY tab 02/26/23 [Rx] Potassium Chloride ER [K-Dur 20] 20 meq PO DAILY #30 tab 02/26/23 [Rx] Thiamine [Vitamin B-1] 100 mg PO DAILY tab 02/26/23 [Rx] Follow up Appointment(s)/Referral(s): Karine Monet MD [STAFF PHYSICIAN] - 1 Week (February, 4:15) Manuela Chase DO [Primary Care Provider] - 3 Days (, February 28 2:00 with Alison Bran in [place] Office) Patient Instructions/Handouts: *Sur[facility] - After Heart Catheterization - Print Shop Stenographer Instructions, Heart Failure (DC), After Radial Heart Catheterization (GEN) Activity/Diet/Wound Care/Special Instructions: [facility] requires prior auth.-in clinic Discharge Disposition: HOME SELF-CARE
--- NOTE | 2023-02-26 15:37 | P.PN ---
Subjective Progress Note Date: 02/26/23 HISTORY OF PRESENT ILLNESS: This is a 72-year-old male with a past medical history significant for coronary artery disease with previous stenting of the mid LAD, aortic stenosis, hypertension, and hyperlipidemia. Patient follows in the office with Dr. Monet. We have been asked to see the patient in consultation for congestive heart failure. Patient examined at the bedside. Patient presented to the hospital for chief complaint of shortness of breath. He states his shortness of breath started about a month ago and has been progressively getting worse. He states when he cut the grass, he had to stop to take frequent rest which he has not had to do previously. He denies any chest pain or pressure. He denied any swelling in his lower extremities. He does report a tennis 15 pound weight gain over the past 2 months. He denies a history of congestive heart failure. * EKG reveals sinus mechanism with T-wave inversions laterally, appear new compared to old EKG. * Chest xray marked pulmonary edema * Laboratory data: W BC 9.4. Hemoglobin 11.2. Platelet count 300. Sodium 143. Potassium 4.3. BUN 17. Creatinine 0.70. Troponin 0.694. 0.832. ProBNP 5150. * Current home cardiac medications include aspirin 81 mg daily, lisinopril 10 mg daily, Lipitor 40 mg daily * Echocardiogram completed this admission reveals ejection fraction 35-40%, moderate MR, trace TR, moderate aortic stenosis with a mean gradient of 25 mmHg, moderate mitral regurgitation * Echocardiogram performed in the April 2022 revealed normal EF, moderate , mild MR, mild TR * Cardiac catheterization history: January 2021 with stenting to the mid LAD 02/23/2023 Patient examined this morning at the bedside. Patient denies chest pain or pressure. He reports improvement in his shortness of breath. He remains on IV Lasix. Vital signs are stable. 02/24/2023 Patient examined this point. Patient is sitting up in the chair. He denies any chest pain or pressure. He denies any shortness of breath. Vital signs are stable. He remains on IV Lasix. 02/25 Patient is seen today in follow up. He denies chest pain, no shortness of breath. Patient is scheduled for cardiac catheterization today with Dr. Monet. Blood pressure 117/60, heart rate in the 80s, pulse ox 95% on room air, afebrile. Hemoglobin 10.7, BUN 14 and creatinine 0.6. 02/26 Yesterday, patient underwent cardiac catheterization with Dr. Monet trivial calcified proximal LAD. Severe stenosis in the proximal LAD. Mild to moderate disease in the left circumflex with mild disease in the RCA. Patient is status post successful stenting of the proximal LAD. Plan is to continue aspirin and Plavix for 1 year without interruption, continue statin. He denies any chest pain or pressure. He feels back to normal. Blood pressure 129/65, heart rate in the 70s to 90s, pulse ox 97% on room air. Repeat blood work reveals creatinine 0.62. PHYSICAL EXAM: VITAL SIGNS: Reviewed. GENERAL: Well-developed in no acute distress. HEENT: Head is normocephalic. Pupils are equal, round. Sclerae anicteric. LUNGS: Respirations even and unlabored. Lungs clear bilaterally HEART: Regular rate and rhythm. Systolic murmur noted. ABDOMEN: Soft. Nondistended. Nontender. EXTREMITIES: No clubbing or cyanosis. Peripheral pulses intact. No lower extremity edema NEUROLOGIC: Awake and alert. Oriented x 3. ASSESSMENT: Shortness of breath secondary to coronary artery disease with stent of the proximal LAD Acute heart failure with reduced ejection fraction New onset cardiomyopathy, 35-40% Valvular heart disease including moderate aortic stenosis and moderate mitral regurgitation Coronary artery disease with previous stenting of the LAD, 2020 Hypertension Hyperlipidemia PLAN: Continue current cardiac medications Continue oral Lasix 40 mg daily Continue aspirin and Plavix for 1 year, continue statin and other cardiac medications. Further recommendations pending patient's course Nurse practitioner note has been reviewed by physician. Signing provider agrees with the documented findings, assessment, and plan of care. Objective - Vital Signs Vital signs: Vital Signs Temp 98.3 F 02/26/23 08:00 Pulse 95 02/26/23 08:00 Resp 17 02/26/23 08:00 BP 136/77 02/26/23 08:00 Pulse Ox 95 02/26/23 08:00 FiO2 21 02/24/23 08:20 Intake & Output 02/25/23 02/26/23 02/26/23 18:59 06:59 18:59 Intake Total 220 110 Balance 220 110 Intake: IV 100 Oral 120 110 Other: Voiding Method Urinal Urinal Urinal # Voids 0 # Bowel Movements 0 - Labs CBC & Chem 7: 10/09/23 08:27 02/26/23 09:07 Labs: Abnormal Lab Results - Last 24 Hours (Table) 02/26/23 Range/Units 09:07 Creatinine 0.62 L (0.66-1.25) mg/dL Glucose 127 H (74-99) mg/dL
--- NOTE | 2023-02-27 07:07 | CDI ---
Documentation Clarification Form Date: 02/27/23 From: Arelis Stevenson Admit Date: 02/25/2023 09:38:00 AM Patient Name: Curtis Wick Visit Number: [id number] Discharge Date: 02/26/2023 12:39:00 PM ATTENTION: The Clinical Documentation Specialists (CDI) and [facility] Coding Staff appreciate your assistance in clarifying documentation. Please respond to the clarification below the line at the bottom and electronically sign. The CDI & [facility] Coding staff will review the response and follow-up if needed. Please note: Queries are made part of the Legal Health Record. If you have any questions, please contact the author of this message via ITS. Dr. Jesús Chase, Your patient has troponin level(s) of: 02/21-0.694, 02/21-0.832. Please clarify if there is an additional diagnosis and/or clinical significance related to this value. Patient history/risk factors: HTN w acute on chronic systolic CHF, HLD, CAD w calcification, aortic stenosis with mitral regurgitation, ischemic cardiomyopathy, alcohol abuse Clinical indicators: Presented with shortness of breath, progressively getting worse. Treatment: IV Heparin, Discharge meds: Plavix, Toprol XL, Lasix, Farxiga Is there an additional diagnosis and/or clinical significance related to the above lab result/information: [ X ] NSTEMI type 1 [ ] STEMI type 1 [ ] Type 2 TN due to (specify cause ____) [ ] Non-ischemic with acute myocardial injury [ ] No additional diagnosis/Not clinically significant [ ] Other, please specify [ ] Unable to determine Reference: [employer] Fourth Noble Definition of Myocardial Infraction Elevated Cardiac Troponin >99th percentile with Troponin rise and/or fall With Acute ischemia Acute Myocardial Infarction Atherosclerosis thrombosis Type I TN Oxygen supply and demand imbalance Type II TN (Please indicate etiology) Without acute ischemia Acute Myocardial Injury MTDD
== END 2023-02-26 12:39 | disposition home or self-care (01) | DRG 321 ==
LOC: EC 19:35 → 3SCARD 02-22 02:11 → 6NMEDSUR 02-24 04:54 → 3SCARD 02-24 04:55 → OBSVTOIN 02-25 09:38
PROVIDERS: ADMIT Family Medicine; ATTEND Family Medicine
PROC: 4A023N7 Measurement of Cardiac Sampling and Pressure, Left Heart, Percutaneous Approach (ICD-10-PCS; principal; 2023-02-25 08:35)
PROC: B240ZZ3 Ultrasonography of Single Coronary Artery, Intravascular (ICD-10-PCS; principal; 2023-02-25 08:35)
PROC: B2111ZZ Fluoroscopy of Multiple Coronary Arteries using Low Osmolar Contrast (ICD-10-PCS; principal; 2023-02-25 08:35)
PROC: 027034Z Dilation of Coronary Artery, One Artery with Drug-eluting Intraluminal Device, Percutaneous Approach (ICD-10-PCS; principal; 2023-02-25 08:35)
DX: I11.0 Hypertensive heart disease with heart failure (principal); I21.4 Non-ST elevation (NSTEMI) myocardial infarction; I50.23 Acute on chronic systolic (congestive) heart failure; E78.5 Hyperlipidemia, unspecified; I25.10 Atherosclerotic heart disease of native coronary artery without angina pectoris; I25.84 Coronary atherosclerosis due to calcified coronary lesion; I08.0 Rheumatic disorders of both mitral and aortic valves; I25.5 Ischemic cardiomyopathy; M19.90 Unspecified osteoarthritis, unspecified site; F10.10 Alcohol abuse, uncomplicated; N42.9 Disorder of prostate, unspecified; H57.9 Unspecified disorder of eye and adnexa; M25.551 Pain in right hip; Z79.82 Long term (current) use of aspirin; Z79.899 Other long term (current) drug therapy; Z95.5 Presence of coronary angioplasty implant and graft
CPT/HCPCS: 36415; 71046; 80048; 80053; 83605; 83735; 83880; 84484; 85025; 85027; 85610; 85730; 92978; 93005; 93306; 93458; 94760; 99285

== ENCOUNTER → 2023-05-23 | Outpatient (CLI) | payer MEDICARE ==
[2023-05-23 12:18] LABS: NT-Pro-B-Type Natriuretic Pept 1360 pg/mL
[2023-05-23 16:18] LABS: ALT 26 U/L (10-49); AST 21 U/L (14-35); Albumin 4.4 g/dL (3.8-4.9); Albumin/Globulin Ratio 1.76 Ratio (1.60-3.17); Alkaline Phosphatase 71 U/L (41-126); BUN/Creat Ratio 17.22 Ratio (12.00-20.00); Blood Urea Nitrogen 15.5 mg/dL (9.0-27.0); Calcium 9.4 mg/dL (8.7-10.3); Carbon Dioxide 22.5 mmol/L (21.6-31.8); Chloride 106 mmol/L (96-109); Chol/HDL Ratio 2.64 Ratio; Globulin 2.5 g/dL (1.6-3.3); Glucose 97 mg/dL (70-110); LDL Cholesterol,Calculated 71.4 mg/dL (0.0-131.0); Potassium 4.3 mmol/L (3.5-5.5); Sodium 144 mmol/L (135-145); Total Bilirubin 0.5 mg/dL (0.3-1.2); Total Protein 6.9 g/dL (6.2-8.2)
== END | disposition home or self-care (01) ==
LOC: LABWHC1 10:27
PROVIDERS: ATTEND Internal Medicine Interventional Cardiology
DX: I25.5 Ischemic cardiomyopathy (principal); E78.2 Mixed hyperlipidemia
CPT/HCPCS: 36415; 80053; 80061; 83880

== ENCOUNTER → 2023-08-21 | Outpatient (CLI) | payer MEDICARE ==
[2023-08-21 11:30] LABS: NT-Pro-B-Type Natriuretic Pept 752 pg/mL (0-125)
[2023-08-21 11:31] LABS: ALT 32 U/L (10-49); AST 28 U/L (14-35); Albumin 4.2 g/dL (3.8-4.9); Albumin/Globulin Ratio 1.83 Ratio (1.60-3.17); Alkaline Phosphatase 77 U/L (41-126); BUN/Creat Ratio 16.25 Ratio (12.00-20.00); Calcium 9.1 mg/dL (8.7-10.3); Carbon Dioxide 26.2 mmol/L (21.6-31.8); Chloride 107 mmol/L (96-109); Chol/HDL Ratio 2.32 Ratio; Globulin 2.3 g/dL (1.6-3.3); Glucose 98 mg/dL (70-110); LDL Cholesterol,Calculated 43.7 mg/dL (0.0-131.0); Potassium 4.5 mmol/L (3.5-5.5); Sodium 142 mmol/L (135-145); Total Bilirubin 0.6 mg/dL (0.3-1.2); Total Protein 6.5 g/dL (6.2-8.2)
== END | disposition home or self-care (01) ==
LOC: LABWHC1 08:05
PROVIDERS: ATTEND Internal Medicine Interventional Cardiology
DX: I42.9 Cardiomyopathy, unspecified (principal); E78.2 Mixed hyperlipidemia
CPT/HCPCS: 36415; 80053; 80061; 83880